=== PATIENT | female | born 1950 | race Caucasian/White ===

== ENCOUNTER 2022-10-11 12:54 | Emergency (ER) | payer MEDICARE, SELFPAY ==
[2022-10-11 13:03] VITALS: BP 138/76; PULSE 103; RESP 17; TEMP 36.5; O2SAT 94
--- NOTE | 2022-10-11 14:00 | XR_ITS ---
WS: [id number] Exam: XR chest 2V* [id number] Date/Time of Exam: 10/11/2022 2:00 PM Reason For Exam: dyspnea for one month, No priors. The lungs are hyperinflated and clear. Normal cardiomediastinal silhouette. Bilateral apical pleural thickening. Bony structures are intact. The thoracic spine is markedly osteopenic. XR/XR chest 2V* [id number] IMPRESSION: 1. Pulmonary hyperinflation that might indicate COPD. No acute process noted.
--- NOTE | 2022-10-11 14:04 | ECG_ITS ---
[facility] Test Date: 2022-10-11 Pat Name: Tammy Johns Department: Room: Gender: Female It Sales Consultant: : 1950 Requested By: Angelo Dobson Order Number: [id number] Clarence MD: Mabel Ulloa M.D. Measurements Intervals [place] Rate: 97 P: 74 RI: 146 QRS: 74 QRSD: 74 T: 70 QT: 334 QTc: 426 Interpretive Statements SINUS RHYTHM POSSIBLE LEFT ATRIAL ENLARGEMENT [-0.1mV P-WAVE IN V1/V2] ANTEROSEPTAL MYOCARDIAL INFARCTION , OF INDETERMINATE AGE No previous ECG available for comparison Electronically Signed On 10-12-2022 9:11:41 CONSTRUCTION PROJECT MANAGER by Mabel Ulloa M.D. [email or web address] [id number] f
--- NOTE | 2022-10-11 14:30 | ED_ITS ---
HPI - SOB/Dyspnea General: Chief Complaint: Shortness of Breath/Dyspnea Stated Complaint: sob Time Seen by Provider: 10/11/22 14:27 History of Present Illness: HPI Narrative: 72-year-old female comes in today for complaints of cough and congestion for 1 month. Patient reports that she does not feel like she can cough up her phlegm. Patient reports she cannot take steroids as they make her swell up. Patient appears nontoxic. Patient does report a history of COPD. Associated symptoms: Deny fever(s) Review of Systems Const: Denies: fever(s) Resp: Reports: dyspnea and non-productive cough Physical Exam Const: COMMON NORMALS: alert HENMT: COMMON NORMALS: normocephalic HEAD & SCALP: normocephalic Resp: COMMON NORMALS: normal respiratory effort AUSCULTATION: wheezes Cardio: COMMON NORMALS: regular rate and regular rhythm RATE: regular rate RHYTHM: regular rhythm GI: COMMON NORMALS: non-tender Extremity: COMMON NORMALS: normal to inspection Neuro: SENSORIUM/ORIENTATION: Yes alert Skin: COMMON NORMALS: turgor normal GENERAL SKIN EXAM: turgor normal Course Vital Signs: Vital signs: Vital Signs Temperature 97.7 F 10/11/22 13:03 Pulse Rate 93 10/11/22 14:40 Respiratory Rate 20 H 10/11/22 14:40 Blood Pressure 155/76 10/11/22 14:40 Pulse Oximetry 92 10/11/22 14:40 Oxygen Delivery Me thod 10/11/22 14:40 MDM - SOB/Dyspnea Medical Decision Making 72-year-old female comes in today for complaints of cough and congestion for about 1 month. Patient does have a history of COPD. Patient feels that she cannot cough up the phlegm. On exam patient has good air movement throughout lungs with occasional wheeze. Vital signs are normal. Differential diagnosis includes pneumonia, exacerbation of COPD, postviral cough. Chest x-ray showed signs of COPD but otherwise no other significant abnormalities. Patient will be started on azithromycin and albuterol. Patient reports understanding of care plan need for follow-up or return to the ER for worsening symptoms. Lab Data Labs/Radiology: Radiology Impressions Chest X-Ray 10/11/22 14:00 IMPRESSION: 1. Pulmonary hyperinflation that might indicate COPD. No acute process noted. Discharge Plan Discharge Patient Disposition: Home Clinical Impression: Acute exacerbation of chronic obstructive airways disease Condition: Stable Prescriptions: New azithromycin 250 mg tablet 250 mg PO DAILY 4 Days Qty: 4 0RF Discharge Orders: Discharge ED (Routine); Ordered 10/11/22 Ordered By: Angelo Singer Discharge Diet: Usual diet Discharge Activity: Increase activity as tolerated Patient Instructions: COPD (Chronic Obstructive Pulmonary Disease) (ED) Activity Restrictions/Additional Instructions: Take antibiotic as directed. You will take azithromycin 250 mg daily for the next 4 days. Use albuterol inhaler every 4 hours as needed for cough, congestion, or shortness of breath. Drink plenty of water. Follow-up with primary care in 1 week for recheck. Return to emergency department for worsening symptoms such as fever greater than 100.4, severe chest pain, increasing shortness of breath, or new concerns. Coding Level of Care Code ED Psychosocial Rehabilitation Counselor for Louise Montero
[2022-10-11 14:39] VITALS: BP 155/76; PULSE 94; RESP 20; O2SAT 92
[2022-10-11 14:40] VITALS: BP 155/76; PULSE 93; RESP 20; O2SAT 92
[2022-10-11 14:50] VITALS: PULSE 898; RESP 18; O2SAT 93
[2022-10-11] MEDS: azithromycin 250 mg Tablet 500 MG PO (15:00)
== END 2022-10-11 15:01 | disposition home or self-care (01) ==
PROVIDERS: Emergency Provider Nurse Practitioner Family
DX: J44.1 Chronic obstructive pulmonary disease with (acute) exacerbation (principal)
CPT/HCPCS: 71046; 93005; 94640; 99285; J3535; Q0144

== ENCOUNTER 2022-11-02 13:15 | Inpatient (IN) | payer MEDICARE, SELFPAY ==
[2022-11-02] VITALS (10 sets, daily range): BP systolic 158–181; BP diastolic 79–97; PULSE 92–110; RESP 16–20; TEMP 36.7–36.9; O2SAT 91–94; BMI 21.7
--- NOTE | 2022-11-02 14:44 | ECG_ITS ---
[facility] Test Date: 2022-11-02 Pat Name: Tammy Johns Department: Room: Gender: Female Pulper: : 1950 Requested By: Becka Garsia Order Number: [id number] Clarence MD: Rose Mary Carvajal M.D. Measurements Intervals [place] Rate: 97 P: 59 SC: 139 QRS: 86 QRSD: 78 T: 75 QT: 346 QTc: 441 Interpretive Statements SINUS RHYTHM POSSIBLE LEFT ATRIAL ENLARGEMENT [-0.1mV P-WAVE IN V1/V2] ANTEROSEPTAL MYOCARDIAL INFARCTION , OF INDETERMINATE AGE [40+ ms Q WAVE IN V1-V4] Compared to ECG 10/11/2022 13:10:47 No significant changes Electronically Signed On 11-02-2022 20:44:11 ROUTE AIDE by Rose Mary Carvajal M.D. [id number]
--- NOTE | 2022-11-02 14:48 | XRR_ITS ---
PROCEDURE INFORMATION: Exam: XR Chest Exam date and time: 11/02/2022 2:55 PM Age: 72 years old Clinical indication: Shortness of breath TECHNIQUE: Imaging protocol: Radiologic exam of the chest. Views: 2 views. COMPARISON: CR XR chest 2V* [id number] 10/11/2022 2:04 PM FINDINGS: Lungs: Lung fierro are hyperinflated consistent with COPD. There are some prominent tubular shaped densities below the right hilum on the PA projection that are more apparent on today's exam and may be secondary to developing airway disease (bronchitis).. There is stable biapical nodularity and apical pleural thickening that is likely chronic. Pleural spaces: No pleural effusions or pneumothorax. Heart/Mediastinum: Unremarkable. No cardiomegaly. Bones/joints: Bones are demineralized consistent with osteoporosis. XR/XR chest 2V* [id number] IMPRESSION: 1. Findings suspicious for active airway disease (bronchitis) right lower lobe. 2. COPD with chronic biapical pleural/parenchymal fibrotic changes, stable.
--- NOTE | 2022-11-02 16:11 | W.ED.SOB ---
HPI - SOB/Dyspnea General: Chief Complaint: Shortness of Breath/Dyspnea Stated Complaint: SOB Time Seen by Provider: 11/02/22 16:07 Source: patient Mode of arrival: ambulatory History of Present Illness: HPI Narrative: 72-year-old female presents emergency room with increasing shortness of breath over the last several days. Normally she does not wear oxygen is currently wearing 4 L on arrival satting at 91%. She had gone to her primary care doctor to be evaluated and oxygen sats were markedly decreased in the low 80s she was directed to the emergency room she has not had any productive cough or fever. MD elicited complaint: shortness of breath and cough Pertinent past history: COPD Onset (ago): day(s) Timing: constant Severity: mild Exacerbating factors: exertion and coughing Relieving factors: oxygen and bronchodilators Known history of: COPD Associated symptoms: Reports cough; Deny abdominal pain, chest congestion, chest pain, diaphoresis, dizziness, extremity pain, fever(s), hemoptysis, lightheadedness, myalgias, nausea, orthopnea, palpitations, paresthesias, polydipsia, polyuria, rash, sense of impending doom, syncope or vomiting Review of Systems Const: Denies: fever(s), chills or diaphoresis ENMT: Denies: throat pain, ear or mastoid pain, nasal discharge or nasal congestion Card: Denies: chest pain, palpitations, lightheadedness, syncope or orthopnea Resp: Reports: dyspnea, non-productive cough and wheezing; Denies: hemoptysis or chest congestion GI: Denies: abdominal pain, nausea or vomiting : Denies: flank pain, difficulty voiding, dysuria, urinary frequency or urinary urgency Musc: Denies: extremity pain Skin/Breast: Denies: rash or pruritus Neuro: Denies: dizziness Endo: Denies: polyuria or polydipsia PFSH ED PFSH: Medical History COPD (chronic obstructive pulmonary disease) COVID-19 Diverticulitis Hypertension Ischemic colitis Lower GI bleed Osteoarthritis Rheumatoid arthritis Type 2 diabetes mellitus Ulcerative colitis Surgical History History of colonoscopy History of partial hysterectomy S/P tonsillectomy Family History Other CAD (coronary artery disease) Denies family history of Diabetes Cancer Social History Smoking and tobacco status: former smoker Alcohol intake: never Substance/Drug Use: never Caregiver/support person: No Lives independently: Yes Household members: none Housing: House Pets and animals: Yes Physical Exam Const: GENERAL APPEARANCE: cooperative and comfortable ORIENTATION/CONSCIOUSNESS: Yes awake, Yes oriented to person, Yes oriented to place and Yes oriented to time Resp: AUSCULTATION: rhonchi and wheezes Cardio: COMMON NORMALS: regular rhythm and No murmurs present (Cardio) RATE: tachycardic RHYTHM: regular rhythm GI: COMMON NORMALS: Soft to palpation and No hepatosplenomegaly present AUSCULTATION: Yes normoactive bowel sounds PALPATION: Yes Soft to palpation, No Tenderness to palpation present (GI), No Guarding due to palpation present (GI) and Yes No hepatosplenomegaly present Extremity: COMMON NORMALS: normal to inspection, capillary refill normal, no clubbing, cyanosis or edema, no calf tenderness and no pedal edema Neuro: SENSORIUM/ORIENTATION: Yes oriented to person, Yes oriented to place and Yes oriented to time Skin: COMMON NORMALS: no rashes or lesions noted GENERAL SKIN EXAM: no rashes or lesions noted Course Vital Signs: Vital signs: Vital Signs Temperature 97.5 F L 11/05/22 11:43 Pulse Rate 84 11/05/22 11:43 Respiratory Rate 18 11/05/22 11:43 Blood Pressure 157/75 11/05/22 11:43 Pulse Oximetry 91 11/05/22 11:43 Oxygen Delivery Me thod 11/05/22 11:43 Oxygen Flow Rate 4 11/05/22 08:00 MDM - SOB/Dyspnea Medical Decision Making This patient has COPD with increased oxygen need. Will admit aggressive pulmonary toilet along with steroids. Flu and COVID swabs negative discussed with hospitalist orders written labs imaging and EKG reviewed as found in the chart EKG shows no acute changes Medical Records I reviewed the patient's medical records. Lab Data I reviewed the patient's lab results. 11/02/22 15:38 11/02/22 15:38 Labs/Radiology: Radiology Impressions Chest X-Ray 11/02/22 14:48 IMPRESSION: 1. Findings suspicious for active airway disease (bronchitis) right lower lobe. 2. COPD with chronic biapical pleural/parenchymal fibrotic changes, stable. Chest CT 11/02/22 18:56 IMPRESSION: 1. Scattered areas of ground-glass opacification and areas of reticulonodular interstitial thickening in both lungs. Findings are suspicious for pneumonia, including atypical organisms. Recommend followup chest imaging to insure resolution of these findings. 2. Cylindrical bronchiectasis in the right and left upper lobes. 3. Noncalcified nodule in the right upper lobe with an average measurement of 9 mm (series 4, image 14). For both low risk and high risk patients, consider CT Chest at 3 months, PET/CT, or biopsy. (Reference: Marissa) 4. Incidental/nonacute findings are listed in the report. COMMENTS: In the absence of a history or active diagnosis of lung cancer, it is recommended that this patient with emphysema be evaluated for enrollment in a low dose CT lung cancer screening program. REFERENCES: Marissa Razo, et al. Guidelines for Management of Incidental Pulmonary Nodules Detected on CT Images: From the Fleischner Society 2017. Radiology. 2017;284(1):228-243. Laboratory Results WBC 9.0 10^3/uL (4.0-10.0) 11/02/22 15:38 RBC 4.86 10^6/uL (4.1-5.3) 11/02/22 15:38 Hgb 14.1 g/dL (11.5-15.3) 11/02/22 15:38 Hct 44.3 % (37.0-47.0) 11/02/22 15:38 MCV 91.2 fl (81-99) 11/02/22 15:38 MCH 29.0 pg (28.0-34.0) 11/02/22 15:38 MCHC 31.8 g/dL (30.0-36.0) 11/02/22 15:38 RDW 13.4 % (12.1-15.1) 11/02/22 15:38 Plt Count 355 10^3/cmm (130-400) 11/02/22 15:38 MPV 10.1 fL (7.4-10.4) 11/02/22 15:38 Neut % (Auto) 68.4 % 11/02/22 15:38 Lymph % (Auto) 19.8 % 11/02/22 15:38 [place] % (Auto) 8.1 % 11/02/22 15:38 Eos % (Auto) 2.6 % 11/02/22 15:38 Baso % (Auto) 0.8 % 11/02/22 15:38 Neut # (Auto) 6.14 10^3/uL (1.8-7.7) 11/02/22 15:38 Lymph # (Auto) 1.8 10^3/uL (0.8-4.8) 11/02/22 15:38 [place] # (Auto) 0.7 10^3/uL (0.2-0.9) 11/02/22 15:38 Eos # (Auto) 0.2 10^3/uL (0.0-0.8) 11/02/22 15:38 Baso # (Auto) 0.1 10^3/uL (0.0-0.1) 11/02/22 15:38 Nucleated RBC % (auto) 0 % 11/02/22 15:38 Nucleated RBCs # 0.0 /100WBC 11/02/22 15:38 D-Dimer 0.44 ug/mIFEU (0-0.59) 11/02/22 17:45 Specimen Type Arterial 11/02/22 17:29 Sample Site Radial, left 11/02/22 17:29 ABG pH 7.45 (7.35-7.45) 11/02/22 17:29 ABG pCO2 40.5 mmHg (35-45) 11/02/22 17:29 ABG pO2 62.5 mmHg (80.0-100.0) L 11/02/22 17:29 ABG HCO3 28.0 mmol/L (22-26) H 11/02/22 17:29 ABG O2 Saturation 93.4 11/02/22 17:29 ABG Base Excess 3.7 mmol/L (-2.0-2.0) H 11/02/22 17:29 Jax Test Pos 11/02/22 17:29 A-a O2 Gradient 11.4 mmHg (5-10) H 11/02/22 17:29 Hematocrit 41.6 % (37-47) 11/02/22 17:29 Hgb O2 Saturation 91.4 % (95-100) L 11/02/22 17:29 Carboxyhemoglobin 1.3 %THgb (0.4-20.1) 11/02/22 17:29 Methemoglobin 0.8 % (0.4-1.5) 11/02/22 17:29 Total Hemoglobin 13.6 g/dL (12-16) 11/02/22 17:29 Sodium 142.0 mmol/L (131-143) 11/02/22 17:29 Potassium 3.7 mmol/L (3.5-5.0) 11/02/22 17:29 Glucose 108.0 mg/dL (70-115) 11/02/22 17:29 Ionized Calcium 1.2 mmol/L (1.1-1.4) 11/02/22 17:29 O2 Delivery Device Nc 11/02/22 17:29 O2 Liters/Min 2.0 % 11/02/22 17:29 FiO2 28.0 % 11/02/22 17:29 Paper Cutting Machine Operator ID Cak 11/02/22 17:29 Sodium 141 mmol/L (136-145) 11/02/22 15:38 Potassium 3.8 mmol/L (3.5-5.1) 11/02/22 15:38 Chloride 102 mmol/L (98-107) 11/02/22 15:38 Carbon Dioxide 27 mmol/L (22-29) 11/02/22 15:38 Anion Gap 15.8 (5-19) 11/02/22 15:38 BUN 17 mg/dL (8-23) 11/02/22 15:38 Creatinine 0.5 mg/dL (0.5-0.9) 11/02/22 15:38 GFR Calculation Not Reportable 11/02/22 15:38 Glucose 107 mg/dL (65-115) 11/02/22 15:38 Calculated Osmolality 294 mOsm/kg (285-295) 11/02/22 15:38 Calcium 9.2 mg/dL (8.5-10.5) 11/02/22 15:38 Total Bilirubin 0.3 mg/dL (0.15-1.2) 11/02/22 15:38 AST 15 U/L (0-32) 11/02/22 15:38 ALT 11 U/L (0-33) 11/02/22 15:38 Alkaline Phosphatase 130 U/L (35-105) H 11/02/22 15:38 NT-Pro-B Natriuret Pep 224 pg/mL (0-125) H 11/02/22 15:38 Total Protein 7.6 g/dL (6.6-8.7) 11/02/22 15:38 Albumin 4.0 g/dL (3.5-5.2) 11/02/22 15:38 Globulin 3.6 g/dL (1.3-4.6) 11/02/22 15:38 Urine Color Yellow (Yellow) 11/02/22 16:07 Urine Appearance Clear (CLEAR) 11/02/22 16:07 Urine pH 5 (5-7) 11/02/22 16:07 Ur Specific [place] 1.030 (1.005-1.030) 11/02/22 16:07 Urine Protein Neg (Negative) 11/02/22 16:07 Urine Glucose (UA) Norm (Normal) 11/02/22 16:07 Urine Ketones 1+ (Negative) H 11/02/22 16:07 Urine Blood Neg (Negative) 11/02/22 16:07 Urine Nitrate Negative (Negative) 11/02/22 16:07 Urine Bilirubin Neg (Negative) 11/02/22 16:07 Urine Urobilinogen Neg mg/dL (Negative) 11/02/22 16:07 Ur Leukocyte Esterase 1+ (Negative) H 11/02/22 16:07 Urine RBC None /hpf (0-2) 11/02/22 16:07 Urine WBC None /hpf (0-5) 11/02/22 16:07 Ur Squamous Epith Cells 25-40 /hpf (0-5) H 11/02/22 16:07 Amorphous Sediment Not Reportable 11/02/22 16:07 Urine Bacteria None /hpf (NONE) 11/02/22 16:07 Urine Mucus 2+ /hpf 11/02/22 16:07 Influenza Type A Ag negative (Negative) 11/02/22 17:55 Influenza Type B Ag negative (Negative) 11/02/22 17:55 Discharge Plan Discharge Patient Disposition: Admitted As Inpatient Admit Provider: Ed Powell Clinical Impression: Acute exacerbation of chronic obstructive airways disease Condition: Stable Discharge Diet: Advance as tolerated Discharge Activity: Resume usual activity Coding Level of Care Code ED Transformer Assembly Supervisor for Louise Montero
[2022-11-02 16:17] LABS: Basophils # 0.1 10^3/uL (0.0-0.1); Basophils % 0.8 %; Eosinophils # 0.2 10^3/uL (0.0-0.8); Eosinophils % 2.6 %; Hematocrit 44.3 % (37.0-47.0); Hemoglobin 14.1 g/dL (11.5-15.3); Lymphocytes # 1.8 10^3/uL (0.8-4.8); Lymphocytes % 19.8 %; Mean Corpuscular HGB Conc 31.8 g/dL (30.0-36.0); Mean Corpuscular Volume 91.2 fl (81-99); Mean Platelet Volume 10.1 fL (7.4-10.4); Monocytes # 0.7 10^3/uL (0.2-0.9); Monocytes % 8.1 %; Neutrophils # 6.14 10^3/uL (1.8-7.7); Neutrophils % 68.4 %; Nucleated Red Blood Cells % 0 %; Platelet Count 355 10^3/cmm (130-400); Red Blood Count 4.86 10^6/uL (4.1-5.3); Red Cell Distribution Width 13.4 % (12.1-15.1)
[2022-11-02 16:35] LABS: Alanine Aminotransferase 11 U/L (0-33); Alkaline Phosphatase 130 U/L (35-105); Anion Gap 15.8 (5-19); Aspartate Amino Transferase 15 U/L (0-32); Blood Urea Nitrogen 17 mg/dL (8-23); Calcium 9.2 mg/dL (8.5-10.5); Carbon Dioxide 27 mmol/L (22-29); Chloride 102 mmol/L (98-107); Globulin 3.6 g/dL (1.3-4.6); Glucose 107 mg/dL (65-115); Osmolality Calculated 294 mOsm/kg (285-295); Potassium 3.8 mmol/L (3.5-5.1); Sodium 141 mmol/L (136-145); Total Bilirubin 0.3 mg/dL (0.15-1.2); Total Protein 7.6 g/dL (6.6-8.7)
--- NOTE | 2022-11-02 17:01 | ECG_ITS ---
[facility] Test Date: 2022-11-02 Pat Name: Tammy Johns Department: Room: Gender: Female Legislators: : 1950 Requested By: Becka Garsia Order Number: [id number] Clarence MD: Rose Mary Carvajal M.D. Measurements Intervals [place] Rate: 91 P: 72 [place]: 154 QRS: 75 QRSD: 71 T: 66 QT: 342 QTc: 422 Interpretive Statements SINUS RHYTHM SEPTAL MYOCARDIAL INFARCTION , OF INDETERMINATE AGE [40+ ms Q WAVE IN V1/V2] Compared to ECG 11/02/2022 15:51:45 No significant changes Electronically Signed On 11-02-2022 20:50:43 SUPERVISOR RIVETING by Rose Mary Carvajal M.D. [id number]
[2022-11-02 17:11] LABS: NT Pro B Type Natriuretic Pept 224 pg/mL (0-125)
[2022-11-02] MEDS: ipratropium-albuterol 3 mL Neb INHALATION ×2 (17:26→20:33)
[2022-11-02 17:40] LABS: ABG PCO2 40.5 mmHg (35-45); ABG PH Result 7.45 (7.35-7.45); Alveolar-Arterial Oxygen Gradi 11.4 mmHg (5-10); Arterial Blood Gas Hematocrit 41.6 % (37-47); Base Excess ABG 3.7 mmol/L (-2.0-2.0); Blood Gas Allen Test Pos; Blood Gas Operator Identificat CAK; Blood Gas Sample Site Radial, left; Blood Gas Sample Type Arterial; Carboxyhemoglobin 1.3 %THgb (0.4-20.1); HGB O2 Sat 91.4 % (95-100); Ionized Calcium Level - ABG 1.2 mmol/L (1.1-1.4); Methemoglobin 0.8 % (0.4-1.5); Oxygen Device NC; Oxygen Saturation ABG 93.4; PO2 ABG 62.5 mmHg (80.0-100.0); Potassium Level - ABG 3.7 mmol/L (3.5-5.0); Total Hemoglobin 13.6 g/dL (12-16)
--- NOTE | 2022-11-02 17:54 | USCV_ITS ---
Tammy Johns Age: 72 Gender: F : 1950 Exam Date: 11/02/2022 19:15 Ordering Phys: Ed Powell MD Technologist: MIHAELA Exam Location: [facility] Indication: CHF? , long-term smoker BP: 181 / 96 HR: 102 Rhythm: Sinus Technical Quality: Adequate MEASUREMENTS (Male / Female) Normal Values 2D ECHO LV Diastolic Diameter PLAX 3.2 cm 4.2 - 5.9 / 3.9 - 5.3 cm LV Systolic Diameter PLAX 2.0 cm IVS Diastolic Thickness 1.5 cm 0.6 - 1.0 / 0.6 - 0.9 cm IVS Systolic Thickness 1.6 cm LVPW Diastolic Thickness 1.1 cm 0.6 - 1.0 / 0.6 - 0.9 cm LVPW Systolic Thickness 1.6 cm LVOT Diameter 1.9 cm LV Ejection Fraction 2D Teich 70.9 % LV Ejection Fraction MOD 2C 74.3 % LV Ejection Fraction 2C AL 78.6 % LA Diameter 2.5 cm LA Width 2.3 cm LA Height 4.3 cm RA Width 2.5 cm RA Height 3.7 cm Aorta at Sinotubular Diameter 2.7 cm IVC Diameter 1.1 cm M-MODE Aortic Annulus Diameter 3.0 cm LA Ao Ratio MM 0.9 MV E Point Septal Separation 0.3 cm DOPPLER AV Peak Velocity 108.0 cm/s LVOT Peak Velocity 127.0 cm/s AV Area Cont Eq vti 2.6 cm squared AV Area Cont Eq pk 3.4 cm squared MV Area PHT 3.4 cm squared Mitral E to A Ratio 0.6 MV E' Velocity 38.5 cm/s Mitral E to MV E' Ratio 13.7 Mitral E to LV E' Lateral Ratio 14.2 Mitral E to LV E' Septal Ratio 13.2 TR Peak Velocity 250.7 cm/s TR Peak Gradient 25.1 mmHg TV Peak E Velocity 46.0 cm/s Right Atrial Pressure 5.0 mmHg Pulmonary Artery Systolic Pressu 30.1 mmHg PV Peak Velocity 126.0 cm/s FINDINGS Left Ventricle Normal left ventricular size, systolic function and wall thickness, with no regional wall motion abnormalities. Left ventricular ejection fraction is estimated at 70 %. Grade I diastolic dysfunction (abnormal relaxation filling pattern), normal to mildly elevated filling pressures. Right Ventricle Normal right ventricular size and systolic function. Right ventricular systolic pressure 27 mmHg. Right Atrium Normal right atrial size. Left Atrium Normal left atrial size. Mitral Valve Structurally normal mitral valve. No mitral valve stenosis. No mitral valve regurgitation. Aortic Valve Structurally normal trileaflet aortic valve. No aortic valve stenosis. No aortic valve regurgitation. Tricuspid Valve Structurally normal tricuspid valve. No tricuspid valve stenosis. Trace tricuspid valve regurgitation. Pulmonic Valve Structurally normal pulmonic valve. No pulmonary valve stenosis. No significant pulmonary valve regurgitation. Pericardium No pericardial effusion. Aorta Normal size aortic root and proximal ascending aorta. IVC Normal IVC dimension with >50% respiratory change of the inferior vena cava. CONCLUSIONS 1. Normal left ventricular size, systolic function and wall thickness, with no regional wall motion abnormalities. Left ventricular ejection fraction is estimated at 70 %. Grade I diastolic dysfunction (abnormal relaxation filling pattern), normal to mildly elevated filling pressures. 2. No signifcant valvular abnormality. 3. Pulmonary artery pressure estimated at 27 mm Hg. 4. No prior similar studies to compare. Mabel Ulloa MD (Electronically Signed) Final Date: 03 November 2022 13:53 S
--- NOTE | 2022-11-02 17:55 | P.HP_ITS ---
Providers/Chief Complaint Primary Care Provider: BASIA Chandra Chief Complaint: SOB History of Present Illness Tammy Johns is a 72 year old female with no significant past medical history advanced COPD on inhalers, remote history of ischemic colitis from ulcerative colitis not on treatment not on home oxygen presented to the ER because of worsening of breath for last 2 to 4 weeks associated with walking and cough. At present she is not even able to complete sentences hence presented to the ER. In the ER she was found to be hypoxic down to 70s requiring 4 L of oxygen supplementation after which her saturation improved to 90 the patient continues to remain tachypneic hence hospitalist admission. She received nebulization and 125 mg of IV Solu-Medrol. When I saw the patient he does not need oxygen supplementation saturating 90% with blood pressure of 190 systolics. Patient was visibly tachypneic and out of breath even on talking. Patient was not sure about admission and wanted to go back home on oxygen as she had animals to take care of. We discussed in detail that she is at a high risk of worsening history of baseline anemia that has of hypoxia and history of etiology of the same. She verbalized understanding and wants to talk to her neighbors before deciding about admissions. Patient is deciding she is to receive nebulization with DuoNeb and Pulmicort, IV Lasix one-time, continued oxygen supplementation to maintain saturation over 90, IV ceftriaxone and oral azithromycin. If she decides to stay further work-up as below will be done. Review of Systems General: Reports: 10 or more systems reviewed and unremarkable except in HPI and below Const: Denies: fever(s), chills, body aches, change in appetite, change in weight, malaise, night sweats, diaphoresis, change in sleep pattern, daytime sleepiness or snoring Eyes: Denies: change in vision, blurry vision, photophobia, eye discomfort or eye discharge ENMT: Denies: throat pain, enlarged tonsils, hoarseness, mouth pain, oral sores, dry mouth, tinnitus, nasal congestion or post nasal drip Card: Denies: chest pain, palpitations, irregular heart rhythm, edema, swelling of feet/ankles, lightheadedness, syncope, pre-syncope, dyspnea on exertion, orthopnea, leg pain with exertion or acrocyanosis Resp: Denies: dyspnea, productive cough, non-productive cough, wheezing, stridor, pain on inspiration, change in phlegm color, hemoptysis or chest congestion GI: Denies: abdominal pain, nausea, vomiting, hematemesis, coffee ground emesis, dysphagia, heartburn, diarrhea, constipation, bloating, GI cramping, change in bowel habits, pain on defecation, hematochezia or melena : Denies: flank pain, dysuria, urinary frequency, urinary urgency, urinary hesitancy, nocturia or hematuria Musc: Denies: neck pain, back pain, extremity pain, joint pain, joint swelling, joint redness, joint stiffness or limited range of motion Neuro: Denies: headache(s), numbness in extremities, weakness in extremities, sensory changes, lack of coordination, difficulty walking, frequent falls, dizziness, vertigo, confusion, Slurred speech present, difficulty communicating thoughts or seizure-like activity Psych: Denies: anxiety, depression, mood swings, panic attacks, hopelessness or irritability Endo: Denies: polyuria, polydipsia, tired all the time, cold intolerance, excessive sweating, flushing or heat intolerance Tim/Lymph: Denies: easy bruising or easy bleeding All/Imm: Denies: tongue swelling, facial swelling or acute wheezing Medications/Allergies Home Medications Medication Instructions Recorded Confirmed Last Taken Type albuterol sulfate 90 mcg/actuation 2 puff inhalation Q4H PRN Cough 11/02/22 11/02/22 Unknown History aerosol inhaler Allergies Allergy/AdvReac Type Severity Reaction Status Date / Time aspirin Allergy ALGY-Rash Verified 11/02/22 16:23 Penicillins Allergy ALGY-Anaphy Verified 11/02/22 16:23 laxis umeclidinium Allergy ADR-Cough Verified 11/02/22 16:23 [From Anoro Ellipta] vilanterol Allergy ADR-Cough Verified 11/02/22 16:23 [From Anoro Ellipta] STEROIDS Allergy Unknown Uncoded 11/02/22 16:22 PFSH Acute PFSH: Medical History (Updated 11/03/22 @ 15:32 by Ed Powell MD) COPD (chronic obstructive pulmonary disease) COVID-19 Diverticulitis Ischemic colitis Lower GI bleed Ulcerative colitis Surgical History (Updated 11/03/22 @ 15:32 by Ed Powell MD) History of colonoscopy History of partial hysterectomy S/P tonsillectomy Family History (Updated 11/03/22 @ 15:32 by Ed Powell MD) Other CAD (coronary artery disease) Denies family history of Diabetes Cancer Social History (Updated 11/03/22 @ 15:32 by Ed Powell MD) Smoking and tobacco status: former smoker Alcohol intake: never Substance/Drug Use: never Caregiver/support person: No Lives independently: Yes Household members: none Housing: House Pets and animals: Yes Vitals/I&O/Wt Last Vital Signs Temp 98.1 F 11/02/22 13:21 Pulse 95 11/02/22 17:29 Resp 16 11/02/22 17:26 BP 181/96 11/02/22 17:22 Pulse Ox 92 11/02/22 17:26 O2 Del Method 11/02/22 17:26 O2 Flow Rate 4 11/02/22 17:26 Weight last 48 hrs Weight 61.235 kg Physical Exam Narrative: General: In acute distress and no shortness of breath, using accessory muscles during examination on 4 L oxygen supplementation, pursed lips HEENT: PERRLA, pupils bilaterally equal and reactive Chest:Bronchial breath sounds b/l ,decreased air entry, equal good air entry bilaterally, no more fine basal crackles CVS: S1-S2 regular, no murmurs, no tachycardia, no gallops, no rubs Abdomen: Soft, nontender, no organomegaly, bowel sounds present, morbidly obese Neuro: No focal deficits, no facial deformity, AO x3, power 5/5 in all limbs Data 11/02/22 15:38 11/02/22 15:38 A&P Assessment and plan (1) Respiratory failure with hypoxia: (2) Acute exacerbation of chronic obstructive airways disease: (3) Pneumonia: Plan If patient decides to stay in the hospital we will do as follows. Hypoxic respiratory failure secondary to COPD exacerbation with possible pneumo shon. Check flu swab, COVID-19 PCR, sputum culture, urine Legionella, bacterial antigen, D-dimer. If D-dimer is positive will check CTA otherwise we will do CT without contrast. DuoNebs every 6 hour, budesonide twice daily. Oxygen supplementation keeping saturation over 88%. Solu-Medrol 60 mg every 6 hourly. Empirically start on IV ceftriaxone and oral azithromycin for now. Check echocardiogram. IV Lasix 40 mg one-time. Cannot rule out underlying pulmonary hypertension. Hypertension: Not a known diagnosis. Goal blood pressure less than 140/90 mmHg. Will continue to monitor. If needed will start on medication. Full code. Regular diet. Heparin 5000 every 8 hourly for DVT prophylaxis Famotidine for PUD prophylaxis. Attestations Medical Necessity Statement*: Requires admission for more than 2 midnights for management of hypoxia secondary COPD exacerbation requiring supplemental oxygen Time Spent in Patient Care: Greater than 35 minutes Coding Level of Care Code Acute Code for [facility] Diagnoses Respiratory failure with hypoxia J96.91 Acute exacerbation of chronic obstructive airways disease J44.1 Pneumonia J18.9
[2022-11-02 18:28] LABS: Influenza A by IFA negative (Negative); Influenza B by IFA negative (Negative)
[2022-11-02 18:38] LABS: D Dimer 0.44 ug/mIFEU (0-0.59)
[2022-11-02] MEDS: cefTRIAXone 1,000 MG in sodium chloride 0.9% (plus) 50 ML 100 MG IV (18:44)
[2022-11-02] MEDS: famotidine 20 mg/2 mL INJ IVP (18:45)
[2022-11-02] MEDS: FUROsemide 10 mg/mL SDV 4mL 40 MG IVP (18:47)
--- NOTE | 2022-11-02 18:56 | CTR_ITS ---
PROCEDURE INFORMATION: Exam: CT Chest Without Contrast; Diagnostic Exam date and time: 11/02/2022 8:52 PM Age: 72 years old Clinical indication: Shortness of breath; Patient HX: SOB with hypoxia. History of copd. ; Additional info: SOB, copd vs pna TECHNIQUE: Imaging protocol: Diagnostic computed tomography of the chest without contrast. Sagittal and coronal reformatted images were created and reviewed. Interpretation is based on receipt of 219 images. Radiation optimization: All CT scans at this facility use at least one of these dose optimization techniques: automated exposure control; mA and/or kV adjustment per patient size (includes targeted exams where dose is matched to clinical indication); or iterative reconstruction. COMPARISON: CR XR chest 2V* [id number] 11/02/2022 2:55 PM RADIATION DOSE METRICS: Total DLP (mGy-cm): 241.94 FINDINGS: Limitations: Evaluation of the mediastinum and vasculature is limited without intravenous contrast. Trachea: Tracheobronchial structures are patent. Lungs: Stable moderate hyperinflation of the lungs. Cylindrical bronchiectasis in the right and left upper lobes. Moderate centrilobular emphysematous changes with moderate hyperinflation in the lungs. Scattered areas of ground-glass opacification and areas of reticulonodular interstitial thickening in both lungs. Findings are suspicious for pneumonia, including atypical organisms. Calcified granulomas in the left lower lobe. Noncalcified nodule in the right upper lobe with an average measurement of 9 mm (series 4, image 14). Pleural spaces: Bilateral apical pleural thickening. No pleural effusion. No pneumothorax. Heart: The heart is normal in size. Coronary arteries: Moderate atherosclerotic calcification in the coronary arteries. Esophagus: The esophagus is unremarkable. Mediastinal space: No mediastinal hematoma. No pneumomediastinum. Lymph nodes: No lymphadenopathy. Vasculature: Mild atherosclerotic changes in the visualized arteries. No evidence for aortic aneurysm. Pulmonary arteries are unremarkable. Pulmonary veins are unremarkable. Liver: The visualized liver is unremarkable. Gallbladder and bile ducts: No dilatation of the visualized bile ducts. Pancreas: The visualized pancreas is unremarkable. No pancreatic ductal dilatation. Spleen: The visualized spleen is unremarkable. Adrenal glands: The right and left adrenal glands are unremarkable. Kidneys and ureters: The visualized right and left kidneys are unremarkable. Bones/joints: Degenerative changes in the spine and shoulders. Soft tissues: No acute abnormality in the extrathoracic soft tissues. CT/CT chest wo con [id number] IMPRESSION: 1. Scattered areas of ground-glass opacification and areas of reticulonodular interstitial thickening in both lungs. Findings are suspicious for pneumonia, including atypical organisms. Recommend followup chest imaging to insure resolution of these findings. 2. Cylindrical bronchiectasis in the right and left upper lobes. 3. Noncalcified nodule in the right upper lobe with an average measurement of 9 mm (series 4, image 14). For both low risk and high risk patients, consider CT Chest at 3 months, PET/CT, or biopsy. (Reference: Marissa) 4. Incidental/nonacute findings are listed in the report. COMMENTS: In the absence of a history or active diagnosis of lung cancer, it is recommended that this patient with emphysema be evaluated for enrollment in a low dose CT lung cancer screening program. REFERENCES: Marissa Razo et al. Guidelines for Management of Incidental Pulmonary Nodules Detected on CT Images: From the Fleischner Society 2017. Radiology. 2017;284(1):228-243.
[2022-11-02 18:58] LABS: Folate Level 9.1 ng/mL (4.8-37.3)
[2022-11-02 18:59] LABS: Procalcitonin 0.02 ng/mL (0-0.5); Thyroid Stimulating Hormone 0.72 uIU/mL (0.27-4.20); Vitamin B12 367 pg/mL (232-1245)
[2022-11-02 19:10] LABS: Iron 71 ug/dL (37-145); Percent Saturation 25.5 % (20-50); Total Iron Binding Capacity 278 mcg/dl; Unsaturated Iron Binding 207 ug/dL (112-347)
[2022-11-02 19:56] LABS: Adenovirus Not Detected (NOT DETECT); Chlamydia Pneumoniae Not Detected (NOT DETECT); Coronavirus 229E,HKU1,NL63,OC4 Not Detected (NOT DETECT); Human Metapneumovirus Not Detected (NOT DETECT); Human Rhinovirus/Enterovirus Not Detected (NOT DETECT); Influenza A Not Detected (NOT DETECT); Influenza A H1 Not Detected (NOT DETECT); Influenza A H1-2009 Not Detected (NOT DETECT); Influenza A H3 Not Detected (NOT DETECT); Influenza B Not Detected (NOT DETECT); Mycoplasma Pneumoniae Not Detected (NOT DETECT); Parainfluenza Virus Type 1 Not Detected (NOT DETECT); Parainfluenza Virus Type 2 Not Detected (NOT DETECT); Parainfluenza Virus Type 3 Not Detected (NOT DETECT); Parainfluenza Virus Type 4 Not Detected (NOT DETECT); Respiratory Syncytial Virus A Not Detected (NOT DETECT); Respiratory Syncytial Virus B Not Detected (NOT DETECT); SARS-COV-2 Not Detected (NOT DETECT)
--- NOTE | 2022-11-02 20:26 | PC.NURSE ---
Patient arrived on floor from ER at 20:04 via bed. Patient's vitals currently stable, on 4L oxygen saturating 92 and reports no home use of oxygen. Has requested food, stating she hasn't eaten all day. Currently resting in bed with two side rails up, call light and bedside table within reach, and no further needs at this time.
[2022-11-02] MEDS: budesonide 0.5 mg/2 mL Neb INHALATION (20:32)
--- NOTE | 2022-11-02 20:44 | ECG_ITS ---
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 Measurements Intervals Canones Rate: 97 P: 79 WV: 151 QRS: 38 QRSD: 72 T: 74 QT: 366 QTc: 465 Interpretive Statements SINUS RHYTHM ANTEROSEPTAL MYOCARDIAL INFARCTION , OF INDETERMINATE AGE [40+ ms Q WAVE IN V1-V4] Compared to ECG 11/02/2022 17:01:14 No significant changes Electronically Signed On 11-02-2022 20:51:54 SPORTS TRAINER by Rose Mary Carvajal M.D. [id number]
--- NOTE | 2022-11-02 20:44 | PC.NURSE ---
Patient was taken down to CT via wheelchair and on 4L oxygen by FUR PLUCKER
[2022-11-02] MEDS: docusate sodium 100 mg Capsule PO (21:38)
[2022-11-02] MEDS: heparin 5,000 unit/mL INJ 1 mL 5000 UNIT SUBCUT (21:39)
--- NOTE | 2022-11-02 23:52 | PC.NURSE ---
Patient has allergy to steroids and states that she had angioedema. Dr Gray contacted regarding whether to give or hold solu-mederol. Dr Gray instructed to hold med for now.
[2022-11-03] VITALS (15 sets, daily range): BP systolic 129–149; BP diastolic 65–84; PULSE 71–113; RESP 16–24; TEMP 36.3–36.7; O2SAT 89–96; BMI 23.0
[2022-11-03] MEDS: ipratropium-albuterol 3 mL Neb INHALATION ×4 (03:12→20:31)
[2022-11-03] MEDS: acetaminophen 500 mg Tablet PO (04:46)
--- NOTE | 2022-11-03 04:58 | PC.NURSE ---
0600 dose of Solu-medrol held per Dr Gray's previous orders due to possible allergy
[2022-11-03] MEDS: famotidine 20 mg/2 mL INJ IVP (05:04)
[2022-11-03] MEDS: heparin 5,000 unit/mL INJ 1 mL 5000 UNIT SUBCUT ×3 (05:04→21:15)
[2022-11-03 05:59] LABS: Basophils % 0.2 %; Hematocrit 41.9 % (37.0-47.0); Hemoglobin 13.3 g/dL (11.5-15.3); Lymphocytes # 0.6 10^3/uL (0.8-4.8); Lymphocytes % 12.8 %; Mean Corpuscular HGB Conc 31.7 g/dL (30.0-36.0); Mean Corpuscular Hemoglobin 28.2 pg (28.0-34.0); Mean Corpuscular Volume 88.8 fl (81-99); Mean Platelet Volume 10.2 fL (7.4-10.4); Monocytes # 0.1 10^3/uL (0.2-0.9); Monocytes % 1.4 %; Neutrophils # 4.25 10^3/uL (1.8-7.7); Nucleated Red Blood Cells % 0 %; Platelet Count 358 10^3/cmm (130-400); Red Blood Count 4.72 10^6/uL (4.1-5.3); Red Cell Distribution Width 13.2 % (12.1-15.1)
[2022-11-03 06:16] LABS: Estmated Average Glucose 154
[2022-11-03 06:33] LABS: Alanine Aminotransferase 8 U/L (0-33); Alkaline Phosphatase 126 U/L (35-105); Anion Gap 18.7 (5-19); Aspartate Amino Transferase 16 U/L (0-32); Blood Urea Nitrogen 20 mg/dL (8-23); Calcium 9.6 mg/dL (8.5-10.5); Carbon Dioxide 25 mmol/L (22-29); Chloride 99 mmol/L (98-107); Chol HDL Ratio 3.46 mg/dL (0.0-4.40); Cholesterol 232 mg/dL (0-200); Globulin 3.5 g/dL (1.3-4.6); Glucose 213 mg/dL (65-115); HDL Cholesterol 67 mg/dL (60-100); LDL Cholesterol Calculated 144 mg/dL (50-129); Magnesium 2.2 mg/dL (1.7-2.3); Osmolality Calculated 297 mOsm/kg (285-295); Phosphorus 3.2 mg/dL (2.5-4.5); Potassium 3.7 mmol/L (3.5-5.1); Sodium 139 mmol/L (136-145); Total Bilirubin 0.2 mg/dL (0.15-1.2); Total Protein 7.5 g/dL (6.6-8.7); Triglycerides 103 mg/dL (0-150); VLDL Cholestrol Calculation 21 mg/dL (0-30)
[2022-11-03] MEDS: budesonide 0.5 mg/2 mL Neb INHALATION ×2 (07:39→20:31)
[2022-11-03] MEDS: docusate sodium 100 mg Capsule PO ×2 (10:10→17:33)
[2022-11-03] MEDS: azithromycin 250 mg Tablet 500 MG PO (10:10)
--- NOTE | 2022-11-03 12:28 | PC.CHAP ---
Pastoral Care Encounter/Spiritual Assessment Type of Contact [] Declined home security alarm installer visit [] Patient/Family/Request visit [] Outpatient visit [] Follow-up visit [] Physician referral [] Code/Alert [x] Routine visit [] Staff referral [] Actively dying [] Patient sleeping [] Family support [] [] Out of room [] Palliative care [] [] Receiving care in room [] Pre-surgical visit [] Trauma [] Long length of stay [] ICU visit [] Other: Relational/Emotional Strength [] Patient feels connected with others/family/visitors/staff [] Distress [] Loneliness/isolation [] Abandonment Spirituality of Patient [] Person of Danita [] Attends Orthodoxy of their Danita [] Believes in Prayer [] Reads Bible or Congregational materials [] There are Spiritual issues to be addressed [employer] Professional [employer] Interventions [x] Prayer [] Active listening [] Non-anxious presence [] Spiritual/emotional support [] Crisis/trauma care [] Spiritual counseling [] Bereavement support [] Provided bereavement packet [] Provided Bible/devotional materials [] Provided toy/stuffed animal, coloring book to patient or family member [] Provided Communion [] Anointing/[place] [] Salvation [x] Completed spiritual assessment [] Other: Impact on Illness or Injury [] Angry [] Fearful [] Anxious [] Often cries [] Exhaustion [] Unable to work [] Unable to attend christianity [] Unable to walk/stand [] Unable to read [] Unable to drive [] Unable to eat/drink [] Unable to sleep [] Unable to be with family [] Patient intubated [] Other: Summary Time spent with patient 10 min
--- NOTE | 2022-11-03 15:34 | PM.PN ---
Subjective Subjective: Patient decided to stay in the hospital. Today morning states she is feeling a lot better. On 4 L satting 93%. Patient looks a lot more comfortable. Able to have complete conversation and complete sentences without being more short of breath. Not using accessory muscles anymore. Vitals/I&O/Wt Last Vital Signs Temp 97.4 F L 11/03/22 04:00 Pulse 97 11/03/22 13:48 Resp 16 11/03/22 13:44 BP 144/71 11/03/22 12:00 Pulse Ox 93 11/03/22 13:44 O2 Del Method 11/03/22 13:44 O2 Flow Rate 4 11/03/22 13:44 11/03/22 11/03/22 11/03/22 06:59 14:59 22:59 Intake Total 400 / 400 Output Total 700 / 700 Balance -700 / 310 400 / 400 Weight last 48 hrs Weight 64.665 kg Weight 61.235 kg Weight 61.235 kg Physical Exam Narrative: General: Pleasant, not in acute distress, AO x3, on 4 L oxygen supplementation HEENT: PERRLA, pupils bilaterally equal and reactive Chest:Bronchial breath sounds b/l ,decreased air entry, equal good air entry bilaterally, no more fine basal crackles CVS: S1-S2 regular, no murmurs, no tachycardia, no gallops, no rubs Abdomen: Soft, nontender, no organomegaly, bowel sounds present, morbidly obese Neuro: No focal deficits, no facial deformity, AO x3, power 5/5 in all limbs Data 11/03/22 05:29 11/03/22 05:29 A&P Assessment and plan (1) Respiratory failure with hypoxia: (2) Acute exacerbation of chronic obstructive airways disease: (3) Pneumonia: (4) Hypertension: (5) Type 2 diabetes mellitus: Plan Hypoxic respiratory failure secondary to COPD exacerbation with bilateral pneumonia. Appreciate CT chest results. D-dimer negative, COVID-19, flu swab negative. UA, bacterial antigen, Legionella, MRSA swab not yet collected. Sputum culture not yet collected. DuoNebs every 6 hour, budesonide twice daily. Oxygen supplementation keeping saturation over 88%. For now continue Solu-Medrol 60 mg every 6 hourly. We will start weaning within next 24 hours. Continue with IV ceftriaxone and oral azithromycin for now. Echocardiogram shows grade 1 diastolic dysfunction with a normal EF. IV Lasix 40 mg one-time. Cannot rule out underlying pulmonary hypertension. IV Lasix 40 mg 1 more time. Report output charting. Daily weights. Type 2 diabetes mellitus: A1c Found to be 7. New diagnosis. Given age A1c 7 is appropriate. We will hold off on starting any antidiabetic medications. Will most likely need to continue to monitor A1c 6 monthly. Hypertension: Not a known diagnosis. Goal blood pressure less than 140/90 mmHg. Started amlodipine 5 mg oral daily. CODE STATUS: Discussed in detail with patient again. She does not want to be intubated or resuscitated. DNR/DNI. Carb consistent diet. Heparin 5000 every 8 hourly for DVT prophylaxis Protonix for PUD prophylaxis. Attestations Medical Necessity Statement*: Requires further hospitalization for management of hypoxic respiratory failure in setting of bilateral pneumonia, COPD exacerbation Time Spent in Patient Care: Greater than 35 minutes Coding Level of Care Code Acute Code for [facility] Diagnoses Respiratory failure with hypoxia J96.91 Acute exacerbation of chronic obstructive airways disease J44.1 Pneumonia J18.9 Hypertension I10 Type 2 diabetes mellitus E11.9
[2022-11-03] MEDS: FUROsemide 10 mg/mL SDV 4mL 40 MG IVP (15:56)
[2022-11-03 16:59] LABS: Glucose Urine UA Norm (Normal); Protein Urine Neg (Negative); Urine Appearance Clear (CLEAR); Urine Color Yellow (Yellow); pH Urine 5 (5-7)
[2022-11-03 17:00] LABS: Add Urine Microscopic? YES; Bilirubin Urine Neg (Negative); Blood Urine Neg (Negative); Ketones Urine 1+ (Negative); Leukocyte Esterase Urine 1+ (Negative); Nitrate Urine Negative (Negative); Urobilinogen Urine Neg (Negative)
[2022-11-03 17:19] LABS: Add Urine Culture? No; Mucus Urine 2+ /hpf; Squamous Epithelial Cell Urine 25-40 /hpf (0-5)
[2022-11-03] MEDS: cefTRIAXone 1,000 MG in sodium chloride 0.9% (plus) 50 ML 100 MG IV (17:24)
[2022-11-04] VITALS (13 sets, daily range): BP systolic 132–150; BP diastolic 69–82; PULSE 65–103; RESP 15–20; TEMP 36.3–36.9; O2SAT 92–99
[2022-11-04] MEDS: ipratropium-albuterol 3 mL Neb INHALATION ×4 (02:36→20:50)
[2022-11-04] MEDS: heparin 5,000 unit/mL INJ 1 mL 5000 UNIT SUBCUT ×3 (04:33→20:41)
[2022-11-04 05:39] LABS: Basophils % 0.1 %; Hematocrit 43.6 % (37.0-47.0); Hemoglobin 13.9 g/dL (11.5-15.3); Lymphocytes # 0.8 10^3/uL (0.8-4.8); Lymphocytes % 5.8 %; Mean Corpuscular HGB Conc 31.9 g/dL (30.0-36.0); Mean Corpuscular Hemoglobin 28.7 pg (28.0-34.0); Mean Corpuscular Volume 90.1 fl (81-99); Mean Platelet Volume 11.2 fL (7.4-10.4); Monocytes # 0.5 10^3/uL (0.2-0.9); Monocytes % 3.5 %; Neutrophils # 12.01 10^3/uL (1.8-7.7); Nucleated Red Blood Cells % 0 %; Platelet Count 421 10^3/cmm (130-400); Red Blood Count 4.84 10^6/uL (4.1-5.3); Red Cell Distribution Width 13.8 % (12.1-15.1); White Blood Count 13.3 10^3/uL (4.0-10.0)
[2022-11-04 06:14] LABS: Alanine Aminotransferase 11 U/L (0-33); Albumin Level 4.1 g/dL (3.5-5.2); Alkaline Phosphatase 121 U/L (35-105); Anion Gap 21.2 (5-19); Aspartate Amino Transferase 17 U/L (0-32); Blood Urea Nitrogen 32 mg/dL (8-23); Calcium 9.8 mg/dL (8.5-10.5); Carbon Dioxide 27 mmol/L (22-29); Chloride 97 mmol/L (98-107); Globulin 3.3 g/dL (1.3-4.6); Glucose 178 mg/dL (65-115); Osmolality Calculated 303 mOsm/kg (285-295); Potassium 4.2 mmol/L (3.5-5.1); Sodium 141 mmol/L (136-145); Total Bilirubin 0.2 mg/dL (0.15-1.2); Total Protein 7.4 g/dL (6.6-8.7)
[2022-11-04] MEDS: budesonide 0.5 mg/2 mL Neb INHALATION ×2 (08:14→20:50)
[2022-11-04] MEDS: amlodipine 5 mg Tablet PO (09:53)
[2022-11-04] MEDS: pantoprazole 40 mg SDV IVP (09:53)
[2022-11-04] MEDS: docusate sodium 100 mg Capsule PO ×2 (09:53→17:51)
[2022-11-04] MEDS: azithromycin 250 mg Tablet 500 MG PO (09:58)
--- NOTE | 2022-11-04 16:16 | P.PN_ITS ---
Subjective Subjective: States that she is still slightly short of breath, but feeling much better today. She has been able to eat and drink a small amount. Says that she has not had a bowel movement, but she is voiding without difficulty. No other concerns today. Medications: Reviewed: Yes Vitals/I&O/Wt Last Vital Signs Temp 97.6 F 11/04/22 12:00 Pulse 100 11/04/22 14:30 Resp 17 11/04/22 14:20 BP 149/81 11/04/22 12:00 Pulse Ox 92 11/04/22 14:20 O2 Del Method 11/04/22 14:20 O2 Flow Rate 4 11/04/22 14:20 11/04/22 11/04/22 11/04/22 06:59 14:59 22:59 Intake Total 60 / 710 480 / 480 Balance 60 / 10 480 / 480 Weight last 48 hrs Weight 144 lb Weight 142 lb 9 oz Weight 135 lb Physical Exam Narrative: General: Cooperative patient in no apparent distress. Well deve loped. HEENT: Normocephalic, Atraumatic. External ears normal. Nasal passages patent without drainage. MMM. Heart: Regular rate and rhythm. Resp: Scattered Rales, mild tachypnea. No respiratory distress, no use of accessory muscles. Abd: Soft, nontender non-distended. Bowel sounds present 4 quadrants. Extremities: No edema. Skin: No rash or lesions on exposed areas. Data 11/04/22 05:15 11/04/22 05:15 Micro: Microbiology 11/02/22 16:07 Bacterial Antigens - Final Urine Kidney 11/03/22 10:49 MRSA Culture - Final Nose 11/02/22 16:07 Legionella Urinary Antigen - Final Urine,Clean Catch A&P Assessment and plan (1) Respiratory failure with hypoxia: (2) Acute exacerbation of chronic obstructive airways disease: (3) Pneumonia: (4) Hypertension: (5) Type 2 diabetes mellitus: Plan 72-year-old female admitted for Hypoxic respiratory failure secondary to COPD exacerbation with bilateral pneumonia. Patient with improvement in symtoms. Plan for discharge today. Transition to oral ABx and steroids. Home oxygen evaluation prior to discharge. Will hold on initiating diabetic medications until patient sees her PCP. Continue amlodipine for hypertension. Can send medications to her pharmacy. Follow up with PCP this week. CODE STATUS: DNR/DNI. Diet: Carb consistent DVT PPx: Heparin Attestations Medical Necessity Statement*: Plan for discharge today due to resolution of symptoms and improvement in overall health. Time Spent in Patient Care: 16 - 35 minutes Coding Level of Care Code Acute Code for [facility] Diagnoses Respiratory failure with hypoxia J96.91 Acute exacerbation of chronic obstructive airways disease J44.1 Pneumonia J18.9 Hypertension I10 Type 2 diabetes mellitus E11.9
[2022-11-04] MEDS: predniSONE 20 mg Tablet 40 MG PO (17:51)
[2022-11-04] MEDS: cefTRIAXone 1,000 MG in sodium chloride 0.9% (plus) 50 ML 100 MG IV (17:52)
[2022-11-05] VITALS (8 sets, daily range): BP systolic 125–157; BP diastolic 67–77; PULSE 73–93; RESP 16–18; TEMP 36.4–36.5; O2SAT 90–100
[2022-11-05] MEDS: ipratropium-albuterol 3 mL Neb INHALATION ×2 (03:10→07:42)
[2022-11-05] MEDS: heparin 5,000 unit/mL INJ 1 mL 5000 UNIT SUBCUT (04:26)
[2022-11-05] MEDS: fixodent 39 gm Tube 1 APPLIC DENTAL (05:02)
[2022-11-05 05:12] LABS: Basophils % 0.1 %; Hematocrit 43.7 % (37.0-47.0); Hemoglobin 13.5 g/dL (11.5-15.3); Lymphocytes # 0.7 10^3/uL (0.8-4.8); Mean Corpuscular HGB Conc 30.9 g/dL (30.0-36.0); Mean Corpuscular Hemoglobin 28.7 pg (28.0-34.0); Mean Corpuscular Volume 92.8 fl (81-99); Mean Platelet Volume 10.2 fL (7.4-10.4); Monocytes # 0.4 10^3/uL (0.2-0.9); Monocytes % 2.9 %; Neutrophils # 12.51 10^3/uL (1.8-7.7); Neutrophils % 91.3 %; Nucleated Red Blood Cells % 0 %; Platelet Count 358 10^3/cmm (130-400); Red Blood Count 4.71 10^6/uL (4.1-5.3); Red Cell Distribution Width 13.5 % (12.1-15.1); White Blood Count 13.7 10^3/uL (4.0-10.0)
[2022-11-05 05:29] LABS: Alanine Aminotransferase 11 U/L (0-33); Albumin Level 3.5 g/dL (3.5-5.2); Alkaline Phosphatase 111 U/L (35-105); Anion Gap 14.9 (5-19); Aspartate Amino Transferase 14 U/L (0-32); Blood Urea Nitrogen 35 mg/dL (8-23); Calcium 9.8 mg/dL (8.5-10.5); Carbon Dioxide 26 mmol/L (22-29); Chloride 100 mmol/L (98-107); Globulin 3.3 g/dL (1.3-4.6); Glucose 188 mg/dL (65-115); Osmolality Calculated 297 mOsm/kg (285-295); Potassium 3.9 mmol/L (3.5-5.1); Sodium 137 mmol/L (136-145); Total Bilirubin 0.2 mg/dL (0.15-1.2); Total Protein 6.8 g/dL (6.6-8.7)
[2022-11-05] MEDS: budesonide 0.5 mg/2 mL Neb INHALATION (07:42)
[2022-11-05] MEDS: amlodipine 5 mg Tablet PO (09:30)
[2022-11-05] MEDS: azithromycin 250 mg Tablet 500 MG PO (09:30)
[2022-11-05] MEDS: predniSONE 20 mg Tablet 40 MG PO (09:31)
--- NOTE | 2022-11-05 10:14 | PM.DCS ---
Discharge Providers Date of Admission: 11/02/22 17:58 Date of Discharge: November 05, 2022 Attending Provider at Admission: Ed Powell MD Attending Provider at Discharge: Cresencio Steiner DO Primary Care Provider: BASIA Chandra Diagnoses at Discharge Discharge Diagnosis (1) Respiratory failure with hypoxia: Status: Acute (2) Acute exacerbation of chronic obstructive airways disease: Status: Acute (3) Pneumonia: Status: Acute (4) Hypertension: Status: Acute (5) Type 2 diabetes mellitus: Status: Acute Reason for Visit Reason for Visit: SOB Brief History: 72 year old female with no significant past medical history advanced COPD on inhalers, remote history of ischemic colitis from ulcerative colitis not on treatment not on home oxygen presented to the ER with cough and shortness of breath for the last month. She presented with shortness of breath to the point of conversational dyspnea and found to be hypoxic in the ER to the 70's and required supplemental oxygen. . SHe did continue to remain tachypneic hence hospitalist admission.? She received nebulization and 125 mg of IV Solu-Medrol. Hospital Course Hospital Course SHe was admitted and continued on supplemental oxygen, steroids, IV antibiotics and breathing treatments. she continued to require oxygen to maintain her oxygen sats until discharge. at time of discharge, she was evaluated for home O2 but did not qualify and was able to maintain her oxygen greater than 90% with activity. She was started on antihypertensive therapy due to elevated BP, which improved with treatment. It was recommended that she follow up with her PCP to discuss this further. She was discharged in stable and improved condition and recommended that she see her PCP within the next one week. Physical Exam Narrative: General: Cooperative patient in no apparent distress. Well developed. HEENT: Normocephalic, Atraumatic. External ears normal. Nasal passages patent without drainage. MMM. Heart: Regular rate and rhythm. Resp: Scattered Rales, mild tachypnea. No respiratory distress, no use of accessory muscles. Abd: Soft, nontender non-distended. Bowel sounds present 4 quadrants. Extremities: No edema. Skin: No rash or lesions on exposed areas. Discharge Data Studies Completed and Pending Completed Studies During Hospitalization Category Date Time Status CT chest wo con [id number] Stat Cat Scan 11/02/22 18:56 Completed XR chest 2V* [id number] Stat Exams 11/02/22 14:48 Completed CV. echo complete* [id number] Routine Ultrasound 11/02/22 17:54 Completed Pending at discharge Category Date Time Status Sputum Culture and Gram Stain Stat Lab 11/02/22 19:01 Uncollected Radiology Impressions Chest X-Ray 11/02/22 14:48 IMPRESSION: 1. Findings suspicious for active airway disease (bronchitis) right lower lobe. 2. COPD with chronic biapical pleural/parenchymal fibrotic changes, stable. Chest CT 11/02/22 18:56 IMPRESSION: 1. Scattered areas of ground-glass opacification and areas of reticulonodular interstitial thickening in both lungs. Findings are suspicious for pneumonia, including atypical organisms. Recommend followup chest imaging to insure resolution of these findings. 2. Cylindrical bronchiectasis in the right and left upper lobes. 3. Noncalcified nodule in the right upper lobe with an average measurement of 9 mm (series 4, image 14). For both low risk and high risk patients, consider CT Chest at 3 months, PET/CT, or biopsy. (Reference: Marissa) 4. Incidental/nonacute findings are listed in the report. COMMENTS: In the absence of a history or active diagnosis of lung cancer, it is recommended that this patient with emphysema be evaluated for enrollment in a low dose CT lung cancer screening program. REFERENCES: Marissa Razo, et al. Guidelines for Management of Incidental Pulmonary Nodules Detected on CT Images: From the Fleischner Society 2017. Radiology. 2017;284(1):228-243. Laboratory Results WBC 13.7 10^3/uL (4.0-10.0) H 11/05/22 04:42 RBC 4.71 10^6/uL (4.1-5.3) 11/05/22 04:42 Hgb 13.5 g/dL (11.5-15.3) 11/05/22 04:42 Hct 43.7 % (37.0-47.0) 11/05/22 04:42 MCV 92.8 fl (81-99) 11/05/22 04:42 MCH 28.7 pg (28.0-34.0) 11/05/22 04:42 MCHC 30.9 g/dL (30.0-36.0) 11/05/22 04:42 RDW 13.5 % (12.1-15.1) 11/05/22 04:42 Plt Count 358 10^3/cmm (130-400) 11/05/22 04:42 MPV 10.2 fL (7.4-10.4) 11/05/22 04:42 Neut % (Auto) 91.3 % 11/05/22 04:42 Lymph % (Auto) 5.0 % 11/05/22 04:42 [place] % (Auto) 2.9 % 11/05/22 04:42 Eos % (Auto) 0.0 % 11/05/22 04:42 Baso % (Auto) 0.1 % 11/05/22 04:42 Neut # (Auto) 12.51 10^3/uL (1.8-7.7) H 11/05/22 04:42 Lymph # (Auto) 0.7 10^3/uL (0.8-4.8) L 11/05/22 04:42 [place] # (Auto) 0.4 10^3/uL (0.2-0.9) 11/05/22 04:42 Eos # (Auto) 0.0 10^3/uL (0.0-0.8) 11/05/22 04:42 Baso # (Auto) 0.0 10^3/uL (0.0-0.1) 11/05/22 04:42 Nucleated RBC % (auto) 0 % 11/05/22 04:42 Nucleated RBCs # 0.0 /100WBC 11/05/22 04:42 D-Dimer 0.44 ug/mIFEU (0-0.59) 11/02/22 17:45 Specimen Type Arterial 11/02/22 17:29 Sample Site Radial, left 11/02/22 17:29 ABG pH 7.45 (7.35-7.45) 11/02/22 17:29 ABG pCO2 40.5 mmHg (35-45) 11/02/22 17:29 ABG pO2 62.5 mmHg (80.0-100.0) L 11/02/22 17:29 ABG HCO3 28.0 mmol/L (22-26) H 11/02/22 17:29 ABG O2 Saturation 93.4 11/02/22 17:29 ABG Base Excess 3.7 mmol/L (-2.0-2.0) H 11/02/22 17:29 Jax Test Pos 11/02/22 17:29 A-a O2 Gradient 11.4 mmHg (5-10) H 11/02/22 17:29 Hematocrit 41.6 % (37-47) 11/02/22 17:29 Hgb O2 Saturation 91.4 % (95-100) L 11/02/22 17:29 Carboxyhemoglobin 1.3 %THgb (0.4-20.1) 11/02/22 17: Methemoglobin 0.8 % (0.4-1.5) 11/02/22 17:29 Total Hemoglobin 13.6 g/dL (12-16) 11/02/22 17:29 Sodium 142.0 mmol/L (131-143) 11/02/22 17:29 Potassium 3.7 mmol/L (3.5-5.0) 11/02/22 17:29 Glucose 108.0 mg/dL (70-115) 11/02/22 17:29 Ionized Calcium 1.2 mmol/L (1.1-1.4) 11/02/22 17:29 O2 Delivery Device Nc 11/02/22 17:29 O2 Liters/Min 2.0 % 11/02/22 17:29 FiO2 28.0 % 11/02/22 17:29 Gun Profiler ID Cak 11/02/22 17:29 Sodium 137 mmol/L (136-145) 11/05/22 04:42 Potassium 3.9 mmol/L (3.5-5.1) 11/05/22 04:42 Chloride 100 mmol/L (98-107) 11/05/22 04:42 Carbon Dioxide 26 mmol/L (22-29) 11/05/22 04:42 Anion Gap 14.9 (5-19) 11/05/22 04:42 BUN 35 mg/dL (8-23) H 11/05/22 04:42 Creatinine 0.6 mg/dL (0.5-0.9) 11/05/22 04:42 GFR Calculation Not Reportable 11/05/22 04:42 Glucose 188 mg/dL (65-115) H 11/05/22 04:42 Estimat Average Glucose 154 11/03/22 05:29 Hemoglobin A1c 7.0 % (4.0-6.0) H 11/03/22 05:29 Calculated Osmolality 297 mOsm/kg (285-295) H 11/05/22 04:42 Calcium 9.8 mg/dL (8.5-10.5) 11/05/22 04:42 Phosphorus 3.2 mg/dL (2.5-4.5) 11/03/22 05:29 Magnesium 2.2 mg/dL (1.7-2.3) 11/03/22 05:29 Iron 71 ug/dL (37-145) 11/02/22 Unknown TIBC 278 mcg/dl 11/02/22 Unknown % Saturation 25.5 % (20-50) 11/02/22 Unknown Unsat Iron Binding 207 ug/dL (112-347) 11/02/22 Unknown Total Bilirubin 0.2 mg/dL (0.15-1.2) 11/05/22 04:42 AST 14 U/L (0-32) 11/05/22 04:42 ALT 11 U/L (0-33) 11/05/22 04:42 Alkaline Phosphatase 111 U/L (35-105) H 11/05/22 04:42 NT-Pro-B Natriuret Pep 224 pg/mL (0-125) H 11/02/22 15:38 Total Protein 6.8 g/dL (6.6-8.7) 11/05/22 04:42 Albumin 3.5 g/dL (3.5-5.2) 11/05/22 04:42 Globulin 3.3 g/dL (1.3-4.6) 11/05/22 04:42 Triglycerides 103 mg/dL (0-150) 11/03/22 05:29 Cholesterol 232 mg/dL (0-200) H 11/03/22 05:29 LDL Cholesterol, Calc 144 mg/dL (50-129) H 11/03/22 05:29 Total VLDL Cholesterol 21 mg/dL (0-30) 11/03/22 05:29 HDL Cholesterol 67 mg/dL (60-100) 11/03/22 05:29 Cholesterol/HDL Ratio 3.46 mg/dL (0.0-4.40) 11/03/22 05:29 Vitamin B12 367 pg/mL (232-1245) 11/02/22 Unknown Folate 9.1 ng/mL (4.8-37.3) 11/02/22 Unknown Procalcitonin 0.02 ng/mL (0-0.5) 11/02/22 Unknown TSH 0.72 uIU/mL (0.27-4.20) 11/02/22 Unknown Urine Color Yellow (Yellow) 11/02/22 16:07 Urine Appearance Clear (CLEAR) 11/02/22 16:07 Urine pH 5 (5-7) 11/02/22 16:07 Ur Specific [place] 1.030 (1.005-1.030) 11/02/22 16:07 Urine Protein Neg (Negative) 11/02/22 16:07 Urine Glucose (UA) Norm (Normal) 11/02/22 16:07 Urine Ketones 1+ (Negative) H 11/02/22 16:07 Urine Blood Neg (Negative) 11/02/22 16:07 Urine Nitrate Negative (Negative) 11/02/22 16:07 Urine Bilirubin Neg (Negative) 11/02/22 16:07 Urine Urobilinogen Neg mg/dL (Negative) 11/02/22 16:07 Ur Leukocyte Esterase 1+ (Negative) H 11/02/22 16:07 Urine RBC None /hpf (0-2) 11/02/22 16:07 Urine WBC None /hpf (0-5) 11/02/22 16:07 Ur Squamous Epith Cells 25-40 /hpf (0-5) H 11/02/22 16:07 Amorphous Sediment Not Reportable 11/02/22 16:07 Urine Bacteria None /hpf (NONE) 11/02/22 16:07 Urine Mucus 2+ /hpf 11/02/22 16:07 Coronavirus 229E (PCR) Not detected (NOT DETECT) 11/02/22 Unknown Influenza Type A Ag negative (Negative) 11/02/22 17:55 Influenza Type B Ag negative (Negative) 11/02/22 17:55 SARS-CoV-2 (PCR) Not detected (NOT DETECT) 11/02/22 Unknown Vitals Last Vital Signs Temp 97.5 F L 11/05/22 08:00 Pulse 77 11/05/22 08:00 Resp 17 11/05/22 08:00 BP 154/67 11/05/22 08:00 Pulse Ox 94 11/05/22 09:30 O2 Del Method 11/05/22 08:00 O2 Flow Rate 4 11/05/22 08:00 Discharge Plan Discharge Patient Disposition: Home Condition: Stable Prescriptions: New azithromycin 250 mg Tablet 500 mg PO DAILY Qty: 2 0RF amlodipine 5 mg Tablet 5 mg PO DAILY Qty: 30 0RF cefdinir 300 mg capsule 300 mg PO BID 4 Days Qty: 8 0RF prednisone 20 mg Tablet See Rx Instructions .ROUTE .COMPLEX Qty: 11 0RF Rx Instructions: Take 2 tabs by mouth x 3 days, then 1 tab x 3 days, then 1/2 tab x 3 days. Spiriva Respimat 1.25 mcg/actuation mist 2 inh inhalation DAILY Qty: 4 0RF Continued albuterol sulfate 90 mcg/actuation HFA aerosol inhaler 2 puff INHALATION Q4H PRN (Reason: Cough) Discharge Orders: Discharge Order (Routine); Ordered 11/05/22 Ordered By: Cresencio Steiner Referrals: Nidhi Jessica, [employer] [Primary Care Provider] - 1-3 days (Please call sunday to schedule your followup appointment with Nidhi Jessica. If you have any questions or concerns please call the office at [phone].) Discharge Diet: Advance as tolerated Discharge Activity: Resume usual activity Patient Instructions: Type 2 Diabetes, Viral Pneumonia (DC), Chronic Hypertension (DC), Hypertension and Diabetes (DC), Opioid Safety, Pain Management Plan of Treatment: Prescriptions sent to the pharmacy. Continue until course is completed. Follow up with PCP in 2-5 days. Discharge Attestations Time Spent in Discharge Care*: greater than 30 min Specific Discharge Activities: educating patient, documenting/other paperwork and evaluating patient/reviewing data Quality Metrics Clinical Quality Measures [ No reported AMI, CVA or VTE this stay] Coding Level of Care Code Acute Chg FW DC note Diagnoses Respiratory failure with hypoxia J96.91 Acute exacerbation of chronic obstructive airways disease J44.1 Pneumonia J18.9 Hypertension I10 Type 2 diabetes mellitus E11.9
--- NOTE | 2022-11-05 11:15 | PC.NURSE ---
Prescriptions called into [facility] in [place].
== END 2022-11-05 13:29 | disposition home or self-care (01) | DRG 193 ==
LOC: ER 17:05 → MEDSURG 18:59
PROVIDERS: Nurse Practitioner Family; Admitting Provider Student in an Organized Health Care Education/Training Program; Emergency Provider Family Medicine; PCP Nurse Practitioner; Visit Provider Family Medicine
DX: J18.9 Pneumonia, unspecified organism (principal); J96.91 Respiratory failure, unspecified with hypoxia; J44.1 Chronic obstructive pulmonary disease with (acute) exacerbation; J44.0 Chronic obstructive pulmonary disease with (acute) lower respiratory infection; Z79.51 Long term (current) use of inhaled steroids; Z86.16 Personal history of COVID-19; Z87.891 Personal history of nicotine dependence; I27.20 Pulmonary hypertension, unspecified; E11.9 Type 2 diabetes mellitus without complications; I10 Essential (primary) hypertension
CPT/HCPCS: 36415; 36600; 71046; 71250; 80051; 80053; 80061; 81001; 82330; 82607; 82746; 82805; 83036; 83540; 83550; 83735; 83880; 84100; 84145; 84443; 85025; 85378; 86403; 87449; 87635; 87641; 87804; 93005; 93306; 94640; 94760; 96372; 96374; 99285; C9113; J0696; J1644; J1940; J2930; J3490; J7512; J7626; Q0144

== ENCOUNTER 2022-11-28 14:13 | Emergency (ER) | payer MEDICARE, SELFPAY ==
[2022-11-28] VITALS (19 sets, daily range): BP systolic 144–177; BP diastolic 78–105; PULSE 97–113; RESP 18–28; TEMP 36.6; O2SAT 86–95; BMI 21.1
--- NOTE | 2022-11-28 16:00 | XRR_ITS ---
PROCEDURE INFORMATION: Exam: XR Chest Exam date and time: 11/28/2022 4:07 PM Age: 72 years old Clinical indication: Cough and dyspnea; Additional info: Dyspnea/cough TECHNIQUE: Imaging protocol: Radiologic exam of the chest. Views: 1 view. COMPARISON: CT chest wo con [id number] 11/02/2022 8:52 PM FINDINGS: Lungs: Stable moderate hyperinflation of the lungs. Calcified granulomas in the left lower lobe. No focal consolidation. No pulmonary edema. 1.0 cm nodule in the right upper lobe is stable compared with prior CT scan. Pleural spaces: Bilateral apical pleural thickening. No pleural effusion. No pneumothorax. Heart/Mediastinum: The cardiac silhouette and mediastinal contours are unremarkable. Vasculature: Stable vascular calcifications in the aorta. Bones/joints: Unremarkable for age. XR/XR chest 1V portable [id number] IMPRESSION: 1. No acute cardiopulmonary process. 2. 1.0 cm nodule in the right upper lobe is stable compared with prior CT scan. Please refer to dictation for prior CT scan of the chest dated 11/02/2022 for full description of these findings and prior recommendation. 3. Incidental/nonacute findings are listed in the report.
--- NOTE | 2022-11-28 16:11 | W.ED.SOB ---
HPI - SOB/Dyspnea General: Chief Complaint: Shortness of Breath/Dyspnea Stated Complaint: SOB Time Seen by Provider: 11/28/22 14:22 Source: patient Mode of arrival: ambulatory History of Present Illness: HPI Narrative: 72-year-old female presents emergency complaining of shortness of breath with any activity. She is a lifelong smoker quit just a few months ago in August 2022 she had a diagnosis of COVID and has had further problems since that time. She currently uses Spiriva but has not been using it regularly because she states it makes her feel worse she has been using her albuterol 4 and 5 times a day for an extended period of time. When I came in the room she is not having any chest pain she does have a nonproductive cough that is worsened from her baseline. She is also noted to be tachypneic with pursed lip breathing. She is normally not on oxygen at this time she is on 2 L to maintain a sat in the low 90s. MD elicited complaint: shortness of breath and cough Pertinent past history: COPD Onset (ago): hour(s) Timing: constant Exacerbating factors: nothing Relieving factors: nothing Known history of: COPD Associated symptoms: Reports cough; Deny abdominal pain, chest congestion, chest pain, diaphoresis, dizziness, extremity pain, fever(s), hemoptysis, lightheadedness, myalgias, nausea, orthopnea, palpitations, paresthesias, polydipsia, polyuria, rash, sense of impending doom, syncope or vomiting Treatment prior to arrival: bronchodilator Review of Systems Const: Denies: fever(s), chills, fatigue, malaise or diaphoresis ENMT: Denies: throat pain, ear or mastoid pain, nasal discharge or nasal congestion Card: Denies: chest pain, palpitations, lightheadedness, syncope or orthopnea Resp: Denies: hemoptysis or chest congestion GI: Denies: abdominal pain, nausea or vomiting : Denies: flank pain, difficulty voiding, dysuria, urinary frequency or urinary urgency Musc: Denies: extremity pain Skin/Breast: Denies: rash or pruritus Neuro: Denies: dizziness Endo: Denies: polyuria or polydipsia PFS ED PFSH: Medical History (Updated 11/28/22 @ 17:33 by Allan Puente DO) COPD (chronic obstructive pulmonary disease) COVID-19 Diverticulitis Hypertension Ischemic colitis Lower GI bleed Osteoarthritis Rheumatoid arthritis Type 2 diabetes mellitus Ulcerative colitis Surgical History History of colonoscopy History of partial hysterectomy S/P tonsillectomy Family History Other CAD (coronary artery disease) Denies family history of Diabetes Cancer Social History Smoking and tobacco status: former smoker Alcohol intake: never Caregiver/support person: No Lives independently: Yes Household members: none Housing: House Pets and animals: Yes Physical Exam Const: GENERAL APPEARANCE: cooperative and comfortable ORIENTATION/CONSCIOUSNESS: Yes awake, Yes oriented to person, Yes oriented to place and Yes oriented to time HENMT: COMMON NORMALS: normocephalic, atraumatic and hearing grossly normal bilaterally HEAD & SCALP: normocephalic and atraumatic Resp: COMMON NORMALS: normal respiratory effort, No retractions and No use of accessory muscles AUSCULTATION: wheezes Cardio: COMMON NORMALS: regular rhythm and No murmurs present (Cardio) RATE: tachycardic RHYTHM: regular rhythm GI: COMMON NORMALS: Soft to palpation and No hepatosplenomegaly present AUSCULTATION: Yes normoactive bowel sounds PALPATION: Yes Soft to palpation, No Tenderness to palpation present (GI), No Guarding due to palpation present (GI) and Yes No hepatosplenomegaly present Extremity: COMMON NORMALS: normal to inspection, capillary refill normal, no clubbing, cyanosis or edema, no calf tenderness and no pedal edema Neuro: SENSORIUM/ORIENTATION: Yes oriented to person, Yes oriented to place and Yes oriented to time Skin: COMMON NORMALS: no rashes or lesions noted GENERAL SKIN EXAM: no rashes or lesions noted Course Vital Signs: Vital signs: Vital Signs Temperature 97.8 F 11/28/22 14:53 Pulse Rate 98 11/28/22 19:01 Respiratory Rate 18 11/28/22 19:01 Blood Pressure 162/78 11/28/22 19:01 Pulse Oximetry 93 11/28/22 19:01 Oxygen Delivery Me thod 11/28/22 17:07 Oxygen Flow Rate 3 11/28/22 17:07 MDM - SOB/Dyspnea Medical Decision Making Acute exacerbation of COPD. No sign of pneumonia pneumothorax is no pleural effusion. EKG and labs reviewed. Her white count and hemoglobin are normal she does not appear to be in acute congestive heart failure there is no sign of PE. He responds well to interventions for COPD will discharge home with steroid taper. Aggressive use of albuterol. Also think she will benefit from addition of Advair. Encouraged her to follow-up with her primary care doctor and/or pulmonology. Medical Records I reviewed the patient's medical records. Lab Data I reviewed the patient's lab results. 11/28/22 16:20 11/28/22 16:20 Labs/Radiology: Radiology Impressions Chest X-Ray 11/28/22 16:00 IMPRESSION: 1. No acute cardiopulmonary process. 2. 1.0 cm nodule in the right upper lobe is stable compared with prior CT scan. Please refer to dictation for prior CT scan of the chest dated 11/02/2022 for full description of these findings and prior recommendation. 3. Incidental/nonacute findings are listed in the report. Laboratory Results WBC 6.0 10^3/uL (4.0-10.0) 11/28/22 16:20 RBC 4.84 10^6/uL (4.1-5.3) 11/28/22 16:20 Hgb 13.6 g/dL (11.5-15.3) 11/28/22 16:20 Hct 43.0 % (37.0-47.0) 11/28/22 16:20 MCV 88.8 fl (81-99) 11/28/22 16:20 MCH 28.1 pg (28.0-34.0) 11/28/22 16:20 MCHC 31.6 g/dL (30.0-36.0) 11/28/22 16:20 RDW 14.2 % (12.1-15.1) 11/28/22 16:20 Plt Count 318 10^3/cmm (130-400) 11/28/22 16:20 MPV 9.6 fL (7.4-10.4) 11/28/22 16:20 Neut % (Auto) 62.3 % 11/28/22 16:20 Lymph % (Auto) 24.4 % 11/28/22 16:20 [place] % (Auto) 6.7 % 11/28/22 16:20 Eos % (Auto) 5.8 % 11/28/22 16:20 Baso % (Auto) 0.5 % 11/28/22 16:20 Neut # (Auto) 3.73 10^3/uL (1.8-7.7) 11/28/22 16:20 Lymph # (Auto) 1.5 10^3/uL (0.8-4.8) 11/28/22 16:20 [place] # (Auto) 0.4 10^3/uL (0.2-0.9) 11/28/22 16:20 Eos # (Auto) 0.4 10^3/uL (0.0-0.8) 11/28/22 16:20 Baso # (Auto) 0.0 10^3/uL (0.0-0.1) 11/28/22 16:20 Nucleated RBC % (auto) 0 % 11/28/22 16:20 Nucleated RBCs # 0.0 /100WBC 11/28/22 16:20 Sodium 142 mmol/L (136-145) 11/28/22 16:20 Potassium 3.2 mmol/L (3.5-5.1) L 11/28/22 16:20 Chloride 102 mmol/L (98-107) 11/28/22 16:20 Carbon Dioxide 29 mmol/L (22-29) 11/28/22 16:20 Anion Gap 14.2 (5-19) 11/28/22 16:20 BUN 17 mg/dL (8-23) 11/28/22 16:20 Creatinine 0.6 mg/dL (0.5-0.9) 11/28/22 16:20 GFR Calculation Not Reportable 11/28/22 16:20 Glucose 110 mg/dL (65-115) 11/28/22 16:20 Calculated Osmolality 296 mOsm/kg (285-295) H 11/28/22 16:20 Calcium 9.1 mg/dL (8.5-10.5) 11/28/22 16:20 Discharge Plan Discharge Patient Disposition: Home Clinical Impression: Acute exacerbation of chronic obstructive airways disease Condition: Stable Prescriptions: New prednisone 20 mg tablet 20 mg PO TID Qty: 15 0RF Rx Instructions: 1 p.o. 3 times daily x3 days, 1 p.o. twice daily x2 days, 1 p.o. daily x2 days Advair Diskus 250-50 mcg/dose blister with device 1 inh inhalation BID Qty: 60 0RF ipratropium-albuterol 0.5 mg-3 mg(2.5 mg base)/3 mL solution for nebulization 3 ml inhalation Q6H PRN (Reason: shortness of breath or wheezing) Qty: 180 0RF No Action albuterol sulfate 90 mcg/actuation HFA aerosol inhaler 2 puff INHALATION Q4H PRN (Reason: Cough) azithromycin 250 mg Tablet 500 mg PO DAILY Qty: 2 0RF amlodipine 5 mg Tablet 5 mg PO DAILY Qty: 30 0RF prednisone 20 mg Tablet See Rx Instructions .ROUTE .COMPLEX Qty: 11 0RF Rx Instructions: Take 2 tabs by mouth x 3 days, then 1 tab x 3 days, then 1/2 tab x 3 days. Spiriva Respimat 1.25 mcg/actuation mist 2 inh inhalation DAILY Qty: 4 0RF Discharge Orders: Discharge ED (Routine); Ordered 11/28/22 Ordered By: Allan Puente Other Ambulatory Orders: DME: Nebulizer with Neb Kit (Order) Location: None Selected Ordered By: Allan Puente DME: Oxygen (Order) Location: None Selected Ordered By: Allan Puente Referrals: Nidhi Jessica FNP [Primary Care Provider] - Patient Instructions: Opioid Safety, Pain Management Activity Restrictions/Additional Instructions: You are seen today for exacerbation of your COPD. You do require oxygen at 3 L/min. Recommend that you stop smoking. Start the Advair 1 puff twice daily, continue the Spiriva daily. You can use the DuoNebs as needed for acute difficulty with breathing. Coding Level of Care Code ED [employer]iler for Louise Montero
[2022-11-28 16:36] LABS: Basophils % 0.5 %; Eosinophils # 0.4 10^3/uL (0.0-0.8); Eosinophils % 5.8 %; Hemoglobin 13.6 g/dL (11.5-15.3); Lymphocytes # 1.5 10^3/uL (0.8-4.8); Lymphocytes % 24.4 %; Mean Corpuscular HGB Conc 31.6 g/dL (30.0-36.0); Mean Corpuscular Hemoglobin 28.1 pg (28.0-34.0); Mean Corpuscular Volume 88.8 fl (81-99); Mean Platelet Volume 9.6 fL (7.4-10.4); Monocytes # 0.4 10^3/uL (0.2-0.9); Monocytes % 6.7 %; Neutrophils # 3.73 10^3/uL (1.8-7.7); Neutrophils % 62.3 %; Nucleated Red Blood Cells % 0 %; Platelet Count 318 10^3/cmm (130-400); Red Blood Count 4.84 10^6/uL (4.1-5.3); Red Cell Distribution Width 14.2 % (12.1-15.1)
--- NOTE | 2022-11-28 16:57 | ECG_ITS ---
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 Measurements Intervals [place] Rate: 96 P: 78 TN: 141 QRS: 70 QRSD: 77 T: 63 QT: 336 QTc: 426 Interpretive Statements SINUS RHYTHM ANTEROSEPTAL MYOCARDIAL INFARCTION , OF INDETERMINATE AGE [40+ ms Q WAVE IN V1-V4] Compared to ECG 11/02/2022 20:36:29 No significant changes Electronically Signed On 11-28-2022 18:08:38 BUILDING MAINTENANCE MECHANIC by Albin Hurt M.D. [id number]
[2022-11-28] MEDS: ipratropium-albuterol 3 mL Neb INHALATION (16:59)
[2022-11-28 17:12] LABS: Anion Gap 14.2 (5-19); Blood Urea Nitrogen 17 mg/dL (8-23); Calcium 9.1 mg/dL (8.5-10.5); Carbon Dioxide 29 mmol/L (22-29); Chloride 102 mmol/L (98-107); Glucose 110 mg/dL (65-115); Osmolality Calculated 296 mOsm/kg (285-295); Potassium 3.2 mmol/L (3.5-5.1); Sodium 142 mmol/L (136-145)
--- NOTE | 2022-11-28 18:54 | PC.NURSE ---
REPORT GIVEN TO MO[facility] SANTO ASSUMED CARE.
== END 2022-11-28 19:44 | disposition home or self-care (01) ==
PROVIDERS: Emergency Provider Family Medicine; PCP Nurse Practitioner
DX: J44.1 Chronic obstructive pulmonary disease with (acute) exacerbation (principal); Z87.891 Personal history of nicotine dependence; I10 Essential (primary) hypertension; E11.9 Type 2 diabetes mellitus without complications
CPT/HCPCS: 36415; 71045; 80048; 85025; 93005; 94640; 96374; 99285; J2930

== ENCOUNTER → 2022-12-26 13:42 | Outpatient (BNVA) | payer MEDICARE, SELFPAY | PROVIDERS: PCP Nurse Practitioner; Visit Provider Internal Medicine Pulmonary Disease | DX: R91.8 Other nonspecific abnormal finding of lung field (principal); J44.9 Chronic obstructive pulmonary disease, unspecified; Z87.891 Personal history of nicotine dependence | CPT/HCPCS: 99204 ==

== ENCOUNTER 2023-01-11 08:48 | Outpatient (CLI) | payer MEDICARE, SELFPAY ==
--- NOTE | 2023-01-11 09:00 | CTR_ITS ---
PROCEDURE INFORMATION: Exam: CT Chest Without Contrast; Diagnostic Exam date and time: 01/11/2023 9:01 AM Age: 72 years old Clinical indication: Shortness of breath; Patient HX: Severe SOB, requiring o2 since August of 2022; Additional info: Resolution of pneumonia, CT chest to check for resolution of pneumonia TECHNIQUE: Imaging protocol: Diagnostic computed tomography of the chest without contrast. Radiation optimization: All CT scans at this facility use at least one of these dose optimization techniques: automated exposure control; mA and/or kV adjustment per patient size (includes targeted exams where dose is matched to clinical indication); or iterative reconstruction. REPORTING DATA: Count of CT and Cardiac NM exams in prior 12 months: This patient has received [address] and 0 known cardiac nuclear medicine studies in the 12 months prior to the current study. COMPARISON: CT chest wo con [id number] 11/02/2022 8:52 PM RADIATION DOSE METRICS: Total DLP (mGy-cm): 184.59 FINDINGS: Lungs: Mild paraseptal and moderate centrilobular emphysema. Redemonstrated biapical pleuroparenchymal scarring. Similar 1 cm right upper lobe pulmonary nodule. Some scattered tree-in-bud nodularity is seen in the lungs bilaterally, most conspicuous in the right middle lobe and lingula. Calcified granulomas in the left lower lobe. Similar spiculated ground-glass opacity in the left upper lobe measuring up to 1 cm (series 3, image 17). New small platelike opacity in the right middle lobe likely reflect atelectasis. Redemonstrated bronchiectasis and bronchial wall thickening in the upper lungs. Pleural spaces: Unremarkable. No pneumothorax. No pleural effusion. Heart: Unremarkable. No cardiomegaly. No pericardial effusion. Coronary arteries: Mild coronary artery calcification. Lymph nodes: Unremarkable. No enlarged lymph nodes. Vasculature: Unremarkable. No aortic aneurysm. Bones/joints: Remote left rib fracture. Soft tissues: Unremarkable. CT/CT chest wo con [id number] IMPRESSION: 1. No substantial change in the appearance of the chest. Findings are most suggestive of chronic atypical infection such as MAC. 2. Similar 1 cm solid right upper lobe nodule as well as a 1 cm ground-glass left upper lobe nodule. For patients at low risk (minimal or absent history of smoking and of other known risk factors), recommend CT Chest at 3-6 months, then consider CT Chest at 18-24 months. For patients at high risk (history of smoking or of other known risk factors), recommend CT Chest at 3-6 months, then CT Chest at 18-24 months. (Reference: Marissa) COMMENTS: In the absence of a history or active diagnosis of lung cancer, it is recommended that this patient with emphysema be evaluated for enrollment in a low dose CT lung cancer screening program. REFERENCES: Marissa Razo, et al. Guidelines for Management of Incidental Pulmonary Nodules Detected on CT Images: From the Fleischner Society 2017. Radiology. 2017;284(1):228-243.
== END 2023-01-11 08:49 | disposition home or self-care (01) ==
PROVIDERS: PCP Nurse Practitioner; Visit Provider Internal Medicine Pulmonary Disease
DX: J18.9 Pneumonia, unspecified organism (principal); J44.9 Chronic obstructive pulmonary disease, unspecified; R91.1 Solitary pulmonary nodule
CPT/HCPCS: 71250

== ENCOUNTER 2023-01-25 10:17 | Outpatient (CLI) | payer MEDICARE, SELFPAY ==
[2023-01-25 10:50] VITALS: PULSE 88; RESP 20; O2SAT 97
[2023-01-25] MEDS: albuterol 2.5 mg/3 mL Neb INHALATION (10:50)
[2023-01-25 10:55] VITALS: PULSE 90
[2023-07-05 13:31] LABS: Miscellaneous Test See Scanned Lab Rpt
[2023-07-18 15:07] LABS: MTB Complex Respiratory PCR NOT DETECTED; MTB Source SPUTUM
== END 2023-01-25 10:18 | disposition home or self-care (01) ==
LOC: RT 10:20
PROVIDERS: PCP Nurse Practitioner; Visit Provider Internal Medicine Pulmonary Disease
DX: R91.1 Solitary pulmonary nodule (principal); A31.9 Mycobacterial infection, unspecified; J44.9 Chronic obstructive pulmonary disease, unspecified; Z87.891 Personal history of nicotine dependence; Z99.81 Dependence on supplemental oxygen
CPT/HCPCS: 87556; 94060; 94618; 94726; 94729; 99214; J7613

== ENCOUNTER 2023-02-01 08:17 | Outpatient (CLI) | payer MEDICARE, SELFPAY ==
--- NOTE | 2023-02-01 08:30 | FL_ITS ---
WS: [id number] EXAMINATION: FL barium swallow [id number] REASON FOR EXAM: Dysphagia choking on food in the throat ORDER DATE: 02/01/2023 8:37 AM COMPARISON: None available. TECHNIQUE: The patient was able to swallow thick barium for the esophagram. Cine-fluoroscopy with rapid sequence imaging was obtained while the patient swallowed. The patient was also placed supine and in various recumbent positions during the exam. FINDINGS: There was a normal mucosal fold pattern in the upper esophagus. There is no sign of diverticula, webs or stricture. There was a mild delay in contrast emptying from the esophagus into the stomach. Dysmo tility as a result of tertiary contraction waves delayed esophageal emptying. A hiatal hernia was not seen on this study. With provocative maneuvers no gastroesophageal reflux was initiated. The distal esophageal mucosal pattern is unremarkable. FL/FL barium swallow [id number] IMPRESSION: 1. PRESBYESOPHAGUS, MILD CONTRAST RETENTION DUE TO DELAYED EMPTYING. 2. NO GASTROESOPHAGEAL REFLUX. FLUOROSCOPY TIME: 1min [id number] # OF SPOT FILMS: 4
== END 2023-02-01 08:18 | disposition home or self-care (01) ==
LOC: RAD 08:26
PROVIDERS: PCP Nurse Practitioner; Visit Provider Internal Medicine Pulmonary Disease
DX: R13.10 Dysphagia, unspecified (principal)
CPT/HCPCS: 74220

== ENCOUNTER 2023-03-30 12:50 | Outpatient (RCR) | payer MEDICARE, SELFPAY | END 2023-04-20 23:59 | disposition home or self-care (01) | LOC: SST 12:50 | PROVIDERS: Visit Provider Internal Medicine Pulmonary Disease | DX: R13.14 Dysphagia, pharyngoesophageal phase (principal) | CPT/HCPCS: 92610 ==

== ENCOUNTER → 2023-04-04 15:40 | Outpatient (BNVA) | payer MEDICARE, SELFPAY | PROVIDERS: Visit Provider Internal Medicine Pulmonary Disease | DX: A31.9 Mycobacterial infection, unspecified (principal); J18.9 Pneumonia, unspecified organism; R91.1 Solitary pulmonary nodule; J44.9 Chronic obstructive pulmonary disease, unspecified; Z87.891 Personal history of nicotine dependence; Z99.81 Dependence on supplemental oxygen | CPT/HCPCS: 87070; 87077; 87186; 87205; 99214 ==

== ENCOUNTER 2023-05-15 09:52 | Outpatient (CLI) | payer MEDICARE, SELFPAY ==
--- NOTE | 2023-05-15 10:00 | CT_ITS ---
WS: [id number] CT chest wo con [id number] HISTORY: f/u TECHNIQUE: Axial imaging performed through the thorax. Coronal and sagittal reformats are submitted. All CT scans at [facility] use at least one of these dose optimization techniques: automated exposure control; mA and/or kV adjustment per patient size (includes targeted exams where dose is mat ched to clinical indication); or iterative reconstruction. CONTRAST: None DLP: 185.42 mGy.cm COMPARISON: 11/02/2022, 01/11/2023 Lungs and central airway: Lungs are hyperinflated. Biapical pulmonary fibrosis and scarring, greatest on the RIGHT. Reidentified are bilateral patchy opacifications with areas of groundglass and tree-in -bud airspace disease. Subsolid nodule measuring 15 x 19 mm in the RIGHT upper lobe. Similar in size to the prior study. The nodular component appears less consolidated. Moderate improvement in the irre gular opacification previously described in the RIGHT middle lobe. Pleura: Normal. No pleural effusion. Heart and pericardium: Normal size heart with no pericardial effusion. Mediastinum and royce: No adenopathy appreciated on this exam unenhanced exam. Vessels: Mild atherosclerosis aorta. No aneurysm. Normal size pulmonary artery. Chest wall and lower neck: No soft tissue masses. Upper abdomen: Suprarenal aortic calcification. No adrenal mass. Osseous structures: Mild increase in the thoracic kyphosis. CT/CT chest wo con [id number] IMPRESSION: 1. Moderate improvement RIGHT middle lobe irregular opacification. 2. Biapical pleural parenchymal scarring at the apices unchanged. 3. Additional bilateral irregular opacifications in the upper lobes are essent ially stable. Subsolid nodule in the RIGHT upper lobe may have slightly decreas ed in overall density. The RIGHT upper lobe subsolid nodule needs to have angela nued serial evaluation for possible malignancy. Recommend follow-up chest CT in 6 months. 4. Severe chronic emphysema.
[2023-05-19 03:24] LABS: MTB Complex Respiratory PCR NOT DETECTED; MTB Source SPUTUM
== END 2023-05-15 09:53 | disposition home or self-care (01) ==
LOC: RAD 09:54
PROVIDERS: Visit Provider Internal Medicine Pulmonary Disease
DX: R91.1 Solitary pulmonary nodule (principal); A31.9 Mycobacterial infection, unspecified; J43.9 Emphysema, unspecified
CPT/HCPCS: 71250; 87556

== ENCOUNTER 2023-06-18 09:32 | Outpatient (CLI) | payer MEDICARE, SELFPAY ==
--- NOTE | 2023-06-18 09:53 | FL_ITS ---
WS: [id number] Exam: FL barium swallow modifd [id number] Date/Time of Exam: 06/18/2023 9:53 AM Reason For Exam: Pharyngoesoph. dysphagia Fluoroscopy time: 2min [id number] minutes # of spot films: Modified barium swallow was performed in conjunction with the speech therapy service. Swallowing function at the level of the oropharynx was normal. No aspiration or penetration was obser radha. The patient tolerated all consistencies of barium mixture foodstuffs without complication. The p atient swallowed a barium tablet without incident. IMPRESSION: 1. Unremarkable modified barium swallow. No sign of aspiration or penetration into the laryngeal inle t.
== END 2023-06-18 09:33 | disposition home or self-care (01) ==
PROVIDERS: Visit Provider Internal Medicine Pulmonary Disease
DX: R13.14 Dysphagia, pharyngoesophageal phase (principal)
CPT/HCPCS: 74230; 92611

== ENCOUNTER 2023-07-18 11:51 | Emergency (ER) | payer MEDICARE, SELFPAY ==
[2023-07-18 11:55] VITALS: BP 161/83; PULSE 95; RESP 18; TEMP 36.6; O2SAT 94; BMI 20.1
[2023-07-18 12:32] VITALS: BP 131/93; PULSE 91; O2SAT 93
--- NOTE | 2023-07-18 12:39 | W.ED.SOB ---
HPI - SOB/Dyspnea General: Chief Complaint: Shortness of Breath/Dyspnea Stated Complaint: cant breath well Time Seen by Provider: 07/18/23 12:20 Source: patient Mode of arrival: ambulatory Limitations: no limitations History of Present Illness: HPI Narrative: Patient is a 73-year-old female with a history of COPD here for complaints of shortness of breath and chest congestion. Patient states she is normally on 3 L of oxygen. She states that she occasionally will remove her oxygen to do things around the home and outside but states over the past several weeks she has had to wear it continuously. She is not having any chest pain. He denies any lower extremity swelling, calf pain, orthopnea, or PND. She has no history of congestive heart failure. She is reporting subjective fever stating that occasionally she feels sweaty. Patient states her geological sample tester is Dr. Detar. HERRMANN elicited complaint: shortness of breath Pertinent past history: COPD Onset (ago): week(s) Timing: constant Severity: moderate Exacerbating factors: exertion Relieving factors: oxygen and rest Known history of: COPD Associated symptoms: Reports chest congestion and fever(s) (subjective); Deny abdominal pain, chest pain, dizziness, extremity pain, hemoptysis, lightheadedness, nausea, palpitations, syncope or vomiting Treatment prior to arrival: oxygen Related Data: Home oxygen amount: 3 liters Review of Systems Const: Reports: fever(s) (subjective); Denies: chills, body aches, fatigue or malaise Card: Reports: dyspnea on exertion; Denies: chest pain, palpitations, irregular heart rhythm, edema, swelling of feet/ankles, lightheadedness, syncope, pre-syncope, leg pain with exertion or acrocyanosis Resp: Reports: dyspnea, non-productive cough and chest congestion; Denies: wheezing, stridor, pain on inspiration or hemoptysis GI: Denies: abdominal pain, nausea, vomiting or diarrhea Musc: Denies: neck pain, back pain, extremity pain or joint pain Skin/Breast: Denies: rash Neuro: Denies: headache(s) or dizziness PFS ED PFSH: Medical History COPD (chronic obstructive pulmonary disease) COVID-19 Diverticulitis Hypertension Ischemic colitis Lower GI bleed Osteoarthritis Rheumatoid arthritis Type 2 diabetes mellitus Ulcerative colitis Surgical History History of colonoscopy History of partial hysterectomy S/P tonsillectomy Family History Other CAD (coronary artery disease) Denies family history of Diabetes Cancer Social History Smoking and tobacco status: former smoker Quit status (tobacco): has quit using tobacco Year quit tobacco: September 2022 Former quit date comment: 1ppd x 46 years Alcohol intake: never Substance/Drug Use: never Caregiver/support person: No Lives independently: Yes Household members: none Housing: House Pets and animals: Yes Physical Exam Const: COMMON NORMALS: patient oriented x3, no limitations, alert and well nourished GENERAL APPEARANCE: cooperative NUTRITIONAL APPEARANCE: thin ORIENTATION/CONSCIOUSNESS: Yes awake, Yes oriented to person, Yes oriented to place and Yes oriented to time HENMT: COMMON NORMALS: normocephalic and atraumatic HEAD & SCALP: normal to inspection, normocephalic and atraumatic Neck/C-Spine: COMMON NORMALS: no JVD Chest: COMMONS NORMALS: normal inspection of the chest and normal palpation of entire chest wall Resp: COMMON NORMALS: normal respiratory effort and clear to auscultation bilaterally AUSCULTATION: clear to auscultation bilaterally Cardio: COMMON NORMALS: no JVD, regular rate and regular rhythm RATE: regular rate RHYTHM: regular rhythm Extremity: COMMON NORMALS: no clubbing, cyanosis or edema, no calf tenderness and no pedal edema Neuro: COMMON NORMALS: patient oriented x3 SENSORIUM/ORIENTATION: Yes alert, Yes oriented to person, Yes oriented to place and Yes oriented to time Skin: COMMON NORMALS: no rashes or lesions noted GENERAL SKIN EXAM: no rashes or lesions noted Course Vital Signs: Vital signs: Vital Signs Temperature 97.9 F 07/18/23 11:55 Pulse Rate 90 07/18/23 14:27 Respiratory Rate 18 07/18/23 11:55 Blood Pressure 163/100 07/18/23 14:27 Pulse Oximetry 94 07/18/23 14:27 Oxygen Delivery Me thod Nasal Cannula 07/18/23 14:27 Oxygen Flow Rate 3 07/18/23 14:27 MDM - SOB/Dyspnea Medical Decision Making Patient is satting well on her normal 3 L. Blood work overall is unremarkable. Her CXR is normal. COVID PCR is pending. At this time we will treat her for a COPD exacerbation with Levaquin and Prednisone taper. Recommend she follow-up with her geological sample tester or primary care provider within the week for re-evaluation. Return ED precautions given. Lab Data 07/18/23 12:42 07/18/23 13:30 Labs/Radiology: Radiology Impressions Chest X-Ray 07/18/23 13:57 IMPRESSION: No acute findings. Laboratory Results WBC 7.36 10^3/uL (3.29-11.43) 07/18/23 12:42 RBC 4.80 10^6/uL (3.85-5.65) 07/18/23 12:42 Hgb 13.70 g/dL (11.27-16.99) 07/18/23 12:42 Hct 43.4 % (36-47) 07/18/23 12:42 MCV 90.4 fl (85-98) 07/18/23 12:42 MCH 28.5 pg (27-33) 07/18/23 12:42 MCHC 31.6 g/dL (30-55) 07/18/23 12:42 RDW 13.5 % (12.1-15.1) 07/18/23 12:42 Plt Count 259 10^3/cmm (157-399) 07/18/23 12:42 MPV 10.5 fL (7.4-10.4) H 07/18/23 12:42 Neut % (Auto) 69.5 % 07/18/23 12:42 Lymph % (Auto) 20.0 % 07/18/23 12:42 Ralls % (Auto) 6.8 % 07/18/23 12:42 Eos % (Auto) 2.6 % 07/18/23 12:42 Baso % (Auto) 0.8 % 07/18/23 12:42 Neut # (Auto) 5.12 10^3/uL (1.8-7.7) 07/18/23 12:42 Lymph # (Auto) 1.5 10^3/uL (0.8-4.8) 07/18/23 12:42 Ralls # (Auto) 0.5 10^3/uL (0.2-0.9) 07/18/23 12:42 Eos # (Auto) 0.2 10^3/uL (0.0-0.8) 07/18/23 12:42 Baso # (Auto) 0.1 10^3/uL (0.0-0.1) 07/18/23 12:42 Nucleated RBC % (auto) 0 % 07/18/23 12:42 Nucleated RBCs # 0.0 /100WBC 07/18/23 12:42 Sodium 138 mmol/L (136-145) 07/18/23 13:30 Potassium 3.9 mmol/L (3.5-5.1) 07/18/23 13:30 Chloride 98 mmol/L (98-107) 07/18/23 13:30 Carbon Dioxide 27 mmol/L (22-29) 07/18/23 13:30 Anion Gap 16.9 (5-19) 07/18/23 13:30 BUN 18 mg/dL (8-23) 07/18/23 13:30 Creatinine 0.5 mg/dL (0.5-0.9) 07/18/23 13:30 GFR Calculation Not Reportable 07/18/23 13:30 Glucose 100 mg/dL (65-115) 07/18/23 13:30 Calculated Osmolality 288 mOsm/kg (285-295) 07/18/23 13:30 Calcium 9.2 mg/dL (8.5-10.5) 07/18/23 13:30 Total Bilirubin 0.3 mg/dL (0.15-1.2) 07/18/23 13:30 AST 15 U/L (0-32) 07/18/23 13:30 ALT 11 U/L (0-33) 07/18/23 13:30 Alkaline Phosphatase 97 U/L (35-105) 07/18/23 13:30 Troponin T Baseline < 6 ng/L (0-10) 07/18/23 13:30 NT-Pro-B Natriuret Pep 143 pg/mL (0-125) H 07/18/23 13:30 Total Protein 7.0 g/dL (6.6-8.7) 07/18/23 13:30 Albumin 4.1 g/dL (3.5-5.2) 07/18/23 13:30 Globulin 2.9 g/dL (1.3-4.6) 07/18/23 13:30 Procalcitonin 0.05 ng/mL (0-0.5) 07/18/23 13:30 All radiology interpretation(s) finalized by discharge Discharge Plan Discharge Patient Disposition: Home Clinical Impression: Acute exacerbation of chronic obstructive pulmonary disease Condition: Stable Prescriptions: New levofloxacin 500 mg tablet 500 mg PO DAILY 7 Days Qty: 7 0RF prednisone 10 mg tablet 10 mg PO DAILY 10 Days Qty: 27 0RF Rx Instructions: 6 tabs on days 1-2, 5 tabs on days 3, 4 tabs on day 4, 3 tabs on day 5, 2 tabs on day 6, 1 tab on day 7 No Action budesonide-formoterol [Symbicort] 80-4.5 mcg/actuation HFA aerosol inhaler 2 puff inhalation BID Qty: 10.2 6RF albuterol sulfate 90 mcg/actuation HFA aerosol inhaler 2 puff INHALATION Q4H PRN (Reason: Shortness Of Breath) ipratropium-albuterol 0.5 mg-3 mg(2.5 mg base)/3 mL solution for nebulization 3 ml inhalation Q6H PRN (Reason: shortness of breath or wheezing) Qty: 180 0RF Discharge Orders: Discharge ED (Routine); Ordered 07/18/23 Ordered By: Jennifer Sequeira Patient Instructions: COPD (Chronic Obstructive Pulmonary Disease) (DC) Activity Restrictions/Additional Instructions: As we discussed I would like you to follow-up with your geological sample tester or your primary care provider within the week for re-evaluation. You may return to the emergency department for worsening shortness of breath, chest pain, difficulty breathing, fevers, generally feeling worse or unwell, or any other concerns you may have. I hope you begin to feel better soon. Coding Level of Care Code ED Clinical Research Director for Louise Montero
--- NOTE | 2023-07-18 12:47 | ECG_ITS ---
[facility] Test Date: 2023-07-18 Pat Name: Tammy Johns Department: Room: Gender: Female [employer] Helper: : 1950 Requested By: Jennifer Sequeira Order Number: [id number] Clarence MD: Rose Mary Carvajal M.D. Measurements Intervals [place] Rate: 86 P: 71 IA: 148 QRS: 74 QRSD: 76 T: 73 QT: 333 QTc: 398 Interpretive Statements SINUS RHYTHM POSSIBLE LEFT ATRIAL ENLARGEMENT [-0.1mV P-WAVE IN V1/V2] SEPTAL MYOCARDIAL INFARCTION , OF INDETERMINATE AGE [40+ ms Q WAVE IN V1/V2] Compared to ECG 11/28/2022 16:57:51 No significant changes Electronically Signed On 07-18-2023 20:50:40 CDT by Rose Mary Carvajal M.D. [email or web address]
--- NOTE | 2023-07-18 12:58 | PC.PHAR ---
pt states she takes care of her own medications-pt states she no longer uses the advair ext shows last filled 05/25/23 30d/s-pt states only using the inhalers entered
[2023-07-18 13:04] LABS: Basophils # 0.1 10^3/uL (0.0-0.1); Basophils % 0.8 %; Eosinophils # 0.2 10^3/uL (0.0-0.8); Eosinophils % 2.6 %; Hematocrit 43.4 % (36-47); Lymphocytes # 1.5 10^3/uL (0.8-4.8); Mean Corpuscular HGB Conc 31.6 g/dL (30-55); Mean Corpuscular Hemoglobin 28.5 pg (27-33); Mean Corpuscular Volume 90.4 fl (85-98); Mean Platelet Volume 10.5 fL (7.4-10.4); Monocytes # 0.5 10^3/uL (0.2-0.9); Monocytes % 6.8 %; Neutrophils # 5.12 10^3/uL (1.8-7.7); Neutrophils % 69.5 %; Nucleated Red Blood Cells % 0 %; Platelet Count 259 10^3/cmm (157-399); Red Cell Distribution Width 13.5 % (12.1-15.1); White Blood Count 7.36 10^3/uL (3.29-11.43)
--- NOTE | 2023-07-18 13:57 | XRR_ITS ---
PROCEDURE INFORMATION: Exam: XR Chest Exam date and time: 07/18/2023 2:00 PM Age: 73 years old Clinical indication: Shortness of breath; Additional info: SOB TECHNIQUE: Imaging protocol: Radiologic exam of the chest. Views: 1 view. COMPARISON: 1. CT chest wo con [id number] 05/15/2023 10:34 AM 2. CR XR chest 1V portable [id number] 11/28/2022 4:07 PM FINDINGS: Lungs: Pulmonary hyperinflation. Stable appearance of biapical pleural-parenchymal scarring. Upper lobe nodularity better evaluated on comparison chest CT. Linear scarring versus atelectasis at the left lung base. No consolidation. Pleural spaces: No pleural effusion or pneumothorax. Heart/Mediastinum: Unremarkable. No cardiomegaly. Vasculature: Aortic arch atherosclerotic calcification. Bones/joints: Levoconvex thoracolumbar spine curvature. Mild degenerative changes along the spine. XR/XR chest 1V portable [id number] IMPRESSION: No acute findings.
[2023-07-18 13:58] LABS: Troponin(5th) Baseline < 6 ng/L (0-10)
[2023-07-18 14:05] LABS: NT Pro B Type Natriuretic Pept 143 pg/mL (0-125); Procalcitonin 0.05 ng/mL (0-0.5)
[2023-07-18 14:16] LABS: Alanine Aminotransferase 11 U/L (0-33); Albumin Level 4.1 g/dL (3.5-5.2); Alkaline Phosphatase 97 U/L (35-105); Anion Gap 16.9 (5-19); Aspartate Amino Transferase 15 U/L (0-32); Blood Urea Nitrogen 18 mg/dL (8-23); Calcium 9.2 mg/dL (8.5-10.5); Carbon Dioxide 27 mmol/L (22-29); Chloride 98 mmol/L (98-107); Globulin 2.9 g/dL (1.3-4.6); Glucose 100 mg/dL (65-115); Osmolality Calculated 288 mOsm/kg (285-295); Potassium 3.9 mmol/L (3.5-5.1); Sodium 138 mmol/L (136-145); Total Bilirubin 0.3 mg/dL (0.15-1.2)
[2023-07-18 14:27] VITALS: BP 163/100; PULSE 90; O2SAT 94
[2023-07-18 15:05] VITALS: BP 163/100; PULSE 95; O2SAT 91
[2023-07-18 15:52] LABS: Adenovirus Not Detected (NOT DETECT); Chlamydia Pneumoniae Not Detected (NOT DETECT); Coronavirus 229E,HKU1,NL63,OC4 Not Detected (NOT DETECT); Human Metapneumovirus Not Detected (NOT DETECT); Human Rhinovirus/Enterovirus Not Detected (NOT DETECT); Influenza A Not Detected (NOT DETECT); Influenza A H1 Not Detected (NOT DETECT); Influenza A H1-2009 Not Detected (NOT DETECT); Influenza A H3 Not Detected (NOT DETECT); Influenza B Not Detected (NOT DETECT); Mycoplasma Pneumoniae Not Detected (NOT DETECT); Parainfluenza Virus Type 1 Not Detected (NOT DETECT); Parainfluenza Virus Type 2 Not Detected (NOT DETECT); Parainfluenza Virus Type 3 Not Detected (NOT DETECT); Parainfluenza Virus Type 4 Not Detected (NOT DETECT); Respiratory Syncytial Virus A Not Detected (NOT DETECT); Respiratory Syncytial Virus B Not Detected (NOT DETECT); SARS-COV-2 Not Detected (NOT DETECT)
== END 2023-07-18 15:07 | disposition home or self-care (01) ==
PROVIDERS: Emergency Provider Physician Assistant
DX: J44.1 Chronic obstructive pulmonary disease with (acute) exacerbation (principal); I10 Essential (primary) hypertension; E11.9 Type 2 diabetes mellitus without complications; Z87.891 Personal history of nicotine dependence; Z20.822 Contact with and (suspected) exposure to COVID-19
CPT/HCPCS: 36415; 71045; 80053; 83880; 84145; 84484; 85025; 87635; 93005; 99285

== ENCOUNTER 2023-11-01 11:35 | Outpatient (CLI) | payer MEDICARE, SELFPAY ==
--- NOTE | 2023-11-01 12:00 | CT_ITS ---
WS: [id number] CT chest wo con [id number] HISTORY: cancer screening TECHNIQUE: Axial imaging performed through the thorax. Coronal and sagittal reformats are submitted. All CT scans at [facility] use at least one of these dose optimization techniques: automated exposure control; mA and/or kV adjustment per patient size (includes targeted exams where dose is mat ched to clinical indication); or iterative reconstruction. CONTRAST: Omnipaque 350; 100 mL IV. DLP: 233.36 mGy.cm COMPARISON: 01/11/2023 and 05/15/2023 Lungs and central airway: Chronic bullous emphysema. In the interval there are new subtle changes wit hin both upper lung fierro. The previously described subsolid nodule in the RIGHT upper lobe has only minimally increased in size but there is asymmetric wall thickening and nodularity now present. This entire subsolid nodule measures 1.7 x 1.6 cm and is becoming more suspicious over time. There is an additional groundglass opacification in the LEFT upper lobe measuring 1.8 x 1.0 cm which also appears to slightly more prominent. There is a new 0.4 cm nodule superior segment LEFT lower lobe. There is an additional subpleural irregular opacification along the medial superior segment LEFT upper lobe. T he biapical pleural-parenchymal thickening is stable. There are a few additional scattered very nonsp ecific nodules throughout both lungs. Pleura: Normal. No pleural effusion. Heart and pericardium: Normal size heart with no pericardial effusion. Mediastinum and royce: No mediastinum or hilar adenopathy. Vessels: Moderate atherosclerosis aorta. Dilated pulmonary artery. Chest wall and lower neck: No soft tissue masses. Upper abdomen: Moderate size hiatal hernia. Osseous structures: Increase in thoracic kyphosis. IMPRESSION: 1. Previously described RIGHT upper lobe subsolid nodule has slowly increased in size as compared to 01/11/2023. There is now asymmetric wall thickening which is suspicious for neoplasm. 2. The groundglass opacification in the LEFT upper lobe appears slightly more prominent and there ar e new subcentimeter nodules in the superior segment LEFT lower lobe. 3. Consider further evaluation by PET/CT imaging at this time due to the change in pulmonary status . 4. Severe bullous emphysema. 5. No adenopathy on this unenhanced exam. 6. Pulmonary hypertension and mild atherosclerosis aorta.
== END 2023-11-01 11:36 | disposition home or self-care (01) ==
LOC: RAD 11:37
PROVIDERS: Visit Provider Internal Medicine Pulmonary Disease
DX: R91.1 Solitary pulmonary nodule (principal); J44.9 Chronic obstructive pulmonary disease, unspecified; J43.8 Other emphysema; I27.20 Pulmonary hypertension, unspecified
CPT/HCPCS: 71250

== ENCOUNTER 2023-12-25 10:18 | Outpatient (CLI) | payer MEDICARE, SELFPAY ==
--- NOTE | 2023-12-25 11:00 | PETR_ITS ---
PROCEDURE INFORMATION: Exam: PET/CT Skull Base to Mid-thigh Exam date and time: 12/25/2023 11:58 AM Age: 73 years old Clinical indication: Abnormal findings; 1. Previously described right upper lobe subsolid nodule has slowly increased in size as compared. To 01/11/2023. There is now asymmetric wall thickening which is suspicious for neoplasm. 2. The groundglass opacification in the left upper lobe appears slightly more prominent and there. Are new subcentimeter nodules in the superior segment left lower lobe. 3. Consider further evaluation by pet/ct imaging at this time due to the change in pulmonary. Status. ; Additional info: Abnormal CT LABS AND CLINICAL REPORTS: Glucose: 109 mg/dl Treatment strategy for malignancy (PET staging): Initial Staging (PI) TECHNIQUE: Imaging protocol: Following at least four-hour fasting and following the injection of radiopharmaceutical, low dose CT images were obtained. Then, PET images were obtained. Attenuation corrected images were constructed using the CT scan. Fused images of PET and CT were reviewed. The standardized uptake values (SUV) reported below are maximum values within a region of interest, expressed in gm/ml. Exam includes orbital meatal line to mid-thigh. Radiopharmaceutical: 10.24 mCi F-18 FDG (Fluorodeoxyglucose), IV. Time of imaging post radiopharmaceutical administration: 1 hour COMPARISON: 1. CT chest from 11/01/[address] chest from 11/02/2022 FINDINGS: Brain: Visualized brain has normal physiologic uptake. Pharynx: No abnormal uptake. Larynx: No abnormal uptake. Lungs, pleura and trachea: Increased FDG uptake is seen associated with a 1.4 cm left upper lobe ground-glass nodule with SUV max 3.5 (image 85). This appears to be new from recent CT dated 11/01/2023. FDG uptake below background is seen associated with the 1.3 cm right upper lobe pulmonary nodule (SUV max 1.1). Similar areas of scarring at the bilateral lung apices. No FDG uptake is seen associated with the ground-glass nodule more superiorly in the left upper lobe. Calcified granulomas in the left lower lobe. Heart: Normal physiologic uptake. Mediastinal space: No abnormal uptake. Liver: No abnormal uptake. Gallbladder and bile ducts: No abnormal uptake. Pancreas: No abnormal uptake. Spleen: No abnormal uptake. Adrenal glands: No abnormal uptake. Kidneys and ureters: Normal physiologic uptake. Stomach and bowel: Small amount of focal uptake is seen at the gastroesophageal junction with SUV max 2.7, favored to be inflammatory. Vasculature: No abnormal uptake. Lymph nodes: No abnormal uptake. No lymphadenopathy in the head, neck, chest, abdomen, pelvis, and extremities. Bones/joints: No abnormal uptake in the visualized axial and appendicular skeleton. Soft tissues: No abnormal uptake in the visualized head, neck, chest, abdomen, pelvis, and extremities. PET/PET [facility] INITIAL [id number] IMPRESSION: 1. Increased FDG uptake is seen associated with a 1.4 cm left upper lobe ground-glass nodule with SUV max 3.5 (image 85). Given that this appears to be new from recent CT dated 11/01/2023, this may be infectious or inflammatory, though neoplastic disease is not entirely excluded. Recommend attention on follow-up. 2. Other pulmonary nodules have FDG uptake below background.
== END 2023-12-25 10:19 | disposition home or self-care (01) ==
LOC: RAD 10:18
PROVIDERS: Visit Provider Internal Medicine Pulmonary Disease
DX: R91.1 Solitary pulmonary nodule (principal); R91.8 Other nonspecific abnormal finding of lung field
CPT/HCPCS: 78815; A9552

== ENCOUNTER 2024-02-25 14:09 | Outpatient (CLI) | payer MEDICARE, SELFPAY ==
--- NOTE | 2024-02-25 14:30 | CT_ITS ---
WS: [id number] CT chest wo con [id number] HISTORY: 2 month f/u post PET/CT TECHNIQUE: Axial imaging performed through the thorax. Coronal and sagittal reformats are submitted. All CT scans at [facility] use at least one of these dose optimization techniques: automated exposure control; mA and/or kV adjustment per patient size (includes targeted exams where dose is mat ched to clinical indication); or iterative reconstruction. CONTRAST: None DLP: 214.89 mGy.cm COMPARISON: CT 05/15/2023 and 11/01/2023, PET/CT 12/25/2023 Lungs and central airway: Severe chronic emphysema. The recently described PET/CT positive groundglas s attenuation in the anterior LEFT upper lobe has resolved. The additional opacifications and nodules were negative on the recent PET/CT. The asymmetric cavitary lesion in the RIGHT upper lobe was not F DG avid. Additional scattered areas of groundglass attenuation. Several new subcentimeter nodules in the RIGHT lower lobe. 3 new nodules are identified measuring up to 9 mm. Pleura: Normal. No pleural effusion. Heart and pericardium: Normal size heart with no pericardial effusion. Mediastinum and royce: No adenopathy identified. The hilar regions are very difficult to evaluate with out IV contrast. Vessels: Marked atherosclerosis aorta. Chest wall and lower neck: No soft tissue masses. Upper abdomen: Suprarenal aortic calcification. No adrenal mass identified. Osseous structures: Increase in thoracic kyphosis. Osteopenia. CT/CT chest wo con [id number] IMPRESSION: 1. PET/CT positive groundglass opacification in the LEFT upper lobe has resolv ed since 12/25/2023. 2. The additional previously described pulmonary opacifications and nodules we re FDG negative. 3. There are 3 new subcentimeter nodules in the RIGHT lower lobe. These were n ot present on the PET/CT of 12/25/2023. Due to the recent appearance these may be postinflammatory. Recommend follow-up chest CT in 3 months. 4. Severe chronic emphysema.
== END 2024-02-25 14:10 | disposition home or self-care (01) ==
LOC: RAD 14:09
PROVIDERS: Visit Provider Internal Medicine Pulmonary Disease
DX: R91.1 Solitary pulmonary nodule (principal); Q33.8 Other congenital malformations of lung; R91.8 Other nonspecific abnormal finding of lung field; J44.89 Other specified chronic obstructive pulmonary disease; M85.88 Other specified disorders of bone density and structure, other site; J43.9 Emphysema, unspecified
CPT/HCPCS: 71250

== ENCOUNTER 2025-05-07 13:40 | Outpatient (CLI) | payer MEDICARE, SELFPAY ==
--- NOTE | 2025-05-07 13:44 | XR_ITS ---
WS: [id number] SCREENING DEXA SCAN [employer] CLINICAL INFORMATION: POST MENOPAUSAL COMPARISON: None. FINDINGS: The L1-L4 bone mineral density measures 0.838 g/cm2. This corresponds to a T score score of -2.8 and Z score of -1.1. Left femoral neck bone mineral density measures 0.717 g/cm2. This corresponds to a T score of -2.3 and Z score of -0.6. Right femoral neck bone mineral density measures 0.695 g/cm2. This corresponds to a T score -2.5of and Z score of -0.8. Mean femoral neck bone mineral density measures 0.706 g/cm2. This corresponds to a T score of -2.4 and Z score of -0.7. XR/XR DEXA axial skeleton* [id number] IMPRESSION: Osteoporosis lumbar spine. Osteopenia femoral necks approaching osteoporosis Patient's FRAX calculated 10 year probability for major osteoporotic fracture i s 20.3% and osteoporotic hip fracture is 6.8%.
== END 2025-05-07 13:41 | disposition home or self-care (01) ==
LOC: RAD 13:41
PROVIDERS: PCP Nurse Practitioner; Visit Provider Nurse Practitioner
DX: Z13.820 Encounter for screening for osteoporosis (principal); Z78.0 Asymptomatic menopausal state; M81.0 Age-related osteoporosis without current pathological fracture
CPT/HCPCS: 77080

== ENCOUNTER 2025-05-28 13:08 | Emergency (ER) | payer MEDICARE, SELFPAY ==
[2025-05-28] VITALS (30 sets, daily range): BP systolic 139–173; BP diastolic 70–104; PULSE 83–103; RESP 17–40; TEMP 36.9; O2SAT 92–99; BMI 21.6
--- NOTE | 2025-05-28 13:25 | XR_ITS ---
WS: [id number] PORTABLE CHEST HISTORY: Weakness COMPARISON: Chest CT 02/25/2024, radiograph 07/18/2023 Marked pulmonary hyperexpansion. Curvilinear asymmetry at the RIGHT lung base is new. Advanced emphysematous changes with biapical pleural thickening. No pleural effusion or pneumothorax. Cardiac size: Normal. Mediastinum/Aorta: Mild atherosclerosis aorta. Osteopenia. XR/XR chest 1V portable [id number] IMPRESSION: 1. Curvilinear opacification at the RIGHT lung base. New compared to most rece nt exams. Focal area of pneumonitis or developing pneumonia. Recommend follow-u p chest radiograph after treatment. 2. Advanced emphysema.
--- OUTSIDE RECORDS SUMMARY | 2025-05-28 13:25 | XMS_ITS | Encounter Summary ---
Author Organization [facility] Address [address] [place] [address] Care Team Providers Care Leathersmith Name Role Phone Unavailable Primary Care Provider Unavailabl e Reason for Referral * Outpatient Services (Routine) - Closed Specialty Diagnoses / Procedures Referred By Contac t Referred To Contact Diagnoses Localized superficial swelling, mass, or lump Procedures US PELVIS LIMITED NON OB Nidhi Jessica APN [address] [place] [phone] Phone: tel: fax: [facility] Pre-Registration [place] CALL TO MAKE APPOINTMENT ONLY [address] [place] [address] Phone: tel: fax: Referral ID Status Reason Start Date Expiration Date V isits Requested Visits Authorized [id number] Closed [facility] TO SCHEDULE ([facility]) 04/21/2014 05/22/2015 1 1 Encounter Details Date Type Department Care Team (Latest Contact Info) Description 04/21/2014 Ancillary Orders [facility] Pre-Registration [place] CALL TO MAKE APPOINTMENT ONLY [address] [place] [address] Nidhi Jessica APN [address] [place] [phone] Localized superficial swelling, mass, or lump (Primary Dx) Social History Tobacco Use Types Packs/Day Years Used Date Smoking Tobacco: Never Assessed Comments Unknown Sex and Gender Information Value Date Recorded Sex Assigned at Not on file 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 Exam: US PELVIS LIMITED NON OB Date/Time of Exam: Apr 27, 2014 12:54:40 PM Reason For Exam: Localized superficial swelling, mass, or lump. Findings: Within the right inguinal region is a structure which is seen to be mobile with an appearance consistent with a fat filled inguinal hernia. From the images submitted it is not clear if a loop of bowel is extending into the hernia during the course of the examination. The extension into the hernia range from between 5.7 cm to 3.2 cm during the course of the study. Zafar - uploaded from [employer] - Narrative Procedure Note Olya Araujo MD - 04/27/2014 IMPRESSION IMPRESSION: See report below. Exam: US PELVIS LIMITED NON OB Date/Time of Exam: Apr 27, 2014 12:54:40 PM Reason For Exam: Localized superficial swelling, mass, or lump. Findings: Within the right inguinal region is a structure which is seen to be mobile with an appearance consistent with a fat filled inguinal hernia. From the images submitted it is not clear if a loop of bowel is extending into the hernia during the course of the examination. The extension into the hernia range from between 5.7 cm to 3.2 cm during the course of the study. Zafar - uploaded from [employer] - us External Provider [facility] ORDERABLES Final Resu lt documented in this encounter Visit Diagnoses Diagnosis Localized superficial swelling, mass, or lump- Primary Localized superficial swelling, mass, or lump documented in this encounter
--- OUTSIDE RECORDS SUMMARY | 2025-05-28 13:25 | XMS_ITS | Clinical Summary ---
Author Organization [facility] Address [address] [facility] Attn: Epic Prelude ADT CECELIA REYES [address] Care Team Providers Care Melting Supervisor Name Role Phone Unavailable Primary Care Provider Unavailabl e Allergies Active Allergy Reactions Criticality Noted Date Comments Aspirin Rash,Other (See Comments) Low 05/04/2014 Fluoxetine Other (See Comments) High 05/04/2014 Suicidal tendencies Ibuprofen Other (See Comments) 05/04/2014 doesn't work Influenza Virus Vaccine Tv Split 2010- (60 Yr +) Unknown 05/06/2014 ALLERGIC TO EGGS L-Desoxyephedrine Palpitations Low 05/04/2014 Penicillins Rash Low 05/04/2014 Prednisone Palpitations,Other (See Comments) Low 05/04/2014 Sulfa (Sulfonamide Antibiotics) Shortness of Breath/Wheezing,Rash High 05/04/2014 Unclassified Drug Palpitations Low 05/04/2014 Active Problems Problem Noted Date Diagnosed Date Protein-calorie malnutrition, moderate 6 Cigarette dependence 05/21/2016 Colitis 05/21/2016 Ulcerative colitis 05/21/2016 Acute colitis Ulcerative pancolitis with complication Acute ischemic colitis Resolved Problems Problem Noted Date Diagnosed Date Resolved Date Acute gastrointestinal hemorrhage 05/21/2016 05/24/2016 Hematochezia 05/21/2016 05/24/2016 Social History Tobacco Use Types Packs/Day Years Used Date Smoking Tobacco: Every Day Cigarettes Alcohol Use Standard Drinks/Week Comments No 0 (1 standard drink = 0.6 oz pur e alcohol) Comments Unknown Sex and Gender Information Value Date Recorded Sex Assigned at Not on file 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 Gender Identity Not on file Sexual Orientation Not on file Last Filed Vital Signs Vital Sign Reading Time Taken Comments Blood Pressure 130/68 05/29/2016 1:54 PM CDT Pulse 62 05/24/2016 10:56 AM CDT Temperature 36.7 C (98.1 F) 05/29/2016 1:54 PM CDT Respiratory Rate 14 05/29/2016 1:54 PM CDT Oxygen Saturation - - Inhaled Oxygen Concentration - - Weight 63.5 kg (140 lb) 05/29/2016 1:54 PM CDT Height 172.7 cm (5' 8 ) 05/29/2016 1:54 PM CDT Body Mass Index 21.29 05/29/2016 1:54 PM CDT Plan of Treatment Health Maintenance Due Date Last Done Comments DTAP/TDAP/TD VACCINES (1 - Tdap) 1970 BREAST CANCER SCREENING 1991 FIT-DNA Q 3 years 1996 FIT/FOBT Q 1 year 1996 Flex Sig/CT Colonography Q 5 years 1996 PNEUMOCOCCAL VACCINE 50+ YEARS (1 of 1 - PCV) 04/02/20 ZOSTER VACCINE (1 of 2) 2001 OSTEOPOROSIS SCREENING 2016 COLORECTAL SCREENING 05/23/2021 05/23/2016 Colorectal Cancer Screening 05/23/2021 INFLUENZA VACCINE (#1) 2025 RSV VACCINE (60+ or ) (1 - 1-dose 75+ series) 2026 Medical Devices Implanted Type Area Rubber Mold Maker Device Identifier Shelf Expiration Date Model / Serial / Lot Mesh Prolene Lg [facility] [id number] Implanted:Qty: 1 on 05/12/2014 by Omega Eastman, DO Mesh Right: Groin [employer] 05/21/2019 [facility] / / [id number]
--- OUTSIDE RECORDS SUMMARY | 2025-05-28 13:25 | XMS_ITS | Clinical Summary ---
Author Organization [facility] Address [address] [place] [address] Phone Care Team Providers Care Manager Hospital Name Role Phone Unavailable Primary Care Provider [...] High 05/04/2014 Unclassified Drug Palpitations Low 05/04/2014 Medications No known medications Active Problems Problem Noted Date Diagnosed Date Protein-calorie malnutrition, moderate 6 Cigarette dependence 05/21/2016 Ulcerative colitis 05/21/2016 Colitis 05/21/2016 Acute colitis Ulcerative pancolitis with complication Acute ischemic colitis Resolved Problems Problem Noted Date Diagnosed Date Resolved Date Hematochezia 05/21/2016 05/24/2016 Acute gastrointestinal hemorrhage 05/21/2016 05/24/2016 Social History Tobacco Use Types Packs/Day Years Used Date Smoking Tobacco: Every Day Cigarettes Alcohol Use Standard Drinks/Week Comments No 0 (1 standard drink = 0.6 oz pur e alcohol) Comments Unknown Sex and Gender Information Value Date Recorded Sex Assigned at Not on file 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 Gender Identity Not on file Sexual Orientation Not on file Occupation Industry Job Start Date Job End Date Not on file Not on file Not on file Not on file Last Filed Vital Signs Vital Sign Reading Time Taken Comments Blood Pressure 130/68 05/29/2016 1:54 PM CDT Pulse 62 05/24/2016 10:56 AM CDT Temperature 36.7 C (98.1 F) 05/29/2016 1:54 PM CDT Respiratory Rate 14 05/29/2016 1:54 PM CDT Oxygen Saturation 99% 05/24/2016 10:56 AM CDT Inhaled Oxygen Concentration - - Weight 63.5 [...] series) 2026 Medical Devices Implanted Type Area Director [facility] Device Identifier Shelf Expiration Date Model / Serial / Lot Mesh Prolene Lg [facility] [id number] Implanted:Qty: 1 on 05/12/2014 by Omega Eastman DO at [facility] Mesh Right: Groin [employer] 05/21/2019 [facility] / / [id number] Advance Directives For more information, please contact: [phone] * Full Code (Latest Code Status on File) Date Activated Date Inactivated Comments 05/23/2016 10:09 AM 05/24/2016 4:32 PM * Full Code Date Activated Date Inactivated Comments 05/21/2016 5:34 PM 05/23/2016 10:09 AM * Full Code Date Activated Date Inactivated Comments 05/12/2014 8:38 AM 05/12/2014 1:06 PM * Full Code Date Activated Date Inactivated Comments 05/12/2014 6:28 AM 05/12/2014 8:38 AM
--- OUTSIDE RECORDS SUMMARY | 2025-05-28 13:25 | XMS_ITS | Encounter Summary ---
Author Organization [facility] Address [address] [place] [address] Care Team Providers Care First Beater Name Role Phone Unavailable Primary Care Provider Unavailabl e Encounter Details Date Type Department Care Team (Latest Contact Info) Description 10/04/2004 Outpatient Historical [facility] [address] [place] [phone] Determinations, Dis [facility] [address] [address] GENERAL MEDICAL EXAM NOS (Primary Dx) Social History Tobacco Use Types Packs/Day Years Used Date Smoking Tobacco: Never Assessed Comments Unknown Sex and Gender Information Value Date Recorded Sex Assigned at Not on file 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
--- NOTE | 2025-05-28 13:41 | ECG_ITS ---
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 Measurements Intervals [place] Rate: 95 P: 69 CO: 151 QRS: 72 QRSD: 74 T: 62 QT: 331 QTc: 417 Interpretive Statements SINUS RHYTHM SEPTAL MYOCARDIAL INFARCTION , PROBABLY OLD [40+ ms Q WAVE IN V1/V2] Compared to ECG 07/18/2023 12:47:49 No significant changes Electronically Signed On 05-29-2025 13:51:42 CDT by Rose Mary Carvajal M.D. [email or web address]
--- NOTE | 2025-05-28 13:45 | ED_ITS ---
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 Says this started about 3 days ago. Worsening cough. Some pleuritic chest pain. No lower extremity swelling. No altered mental status. She says her albuterol inhaler does help some. No altered mental status. No focal motor deficits. No abdominal pain. No vomiting. Related Data Previous Rx's ?Medication ?Instructions ?Recorded ipratropium 0.5 mg-albuterol 3 mg 3 ml inhalation Q6H PRN shortness 11/28/22 (2.5 mg base)/3 mL nebulization of breath or wheezing #180 mL soln albuterol sulfate 90 mcg/actuation 2 puff inhalation Q 4H PRN 10/04/23 aerosol inhaler Shortness Of Breath #8.5 gra ms fluticasone furoate 100 1 inh inhalation DAILY #60 e a 11/09/23 mcg-vilanterol 25 mcg/dose inhalation powder (Breo Ellipta) metronidazole 375 mg capsule 375 mg PO Q12H #20 caps 0 01/08/24 (Flagyl) albuterol sulfate 90 mcg/actuation 2 inh inhalation Q4 H #6.7 grams 05/28/25 aerosol inhaler (Ventolin HFA) doxycycline hyclate 100 mg capsule 100 mg PO BID 7 day s #14 caps 05/28/25 prednisone 20 mg tablet 60 mg (3 x 20 mg) PO DAILY 5 days 05/28/25 #15 tabs Allergies Allergy/AdvReac Type Severity Reaction Status Date / Time aspirin Allergy ALGY-Rash Verified 04/04/23 12:53 Penicillins Allergy ALGY-Anaphy Verified 04/04/23 12:53 laxis umeclidinium (From Anoro Allergy ADR-Cough Verified 04/04/23 12:53 Ellipta) vilanterol (From Anoro Allergy ADR-Cough Verified 04/04/23 12:53 Ellipta) STEROIDS Allergy Unknown Uncoded 04/04/23 12:53 Review of Systems 2 Narrative: Constitutional symptoms: Negative except as documented in HPI. Skin symptoms: Negative except as documented in HPI. Eye symptoms: Negative except as documented in HPI. ENMT symptoms: Negative except as documented in HPI. Respiratory symptoms: Negative except as documented in HPI. Cardiovascular symptoms: Negative except as documented in HPI. Gastrointestinal symptoms: Negative except as documented in HPI. Genitourinary symptoms: Negative except as documented in HPI. Musculoskeletal symptoms: Negative except as documented in HPI. Neurologic symptoms: Negative except as documented in HPI. Psychiatric symptoms: Negative except as documented in HPI. Endocrine symptoms: Negative except as documented in HPI. PFSH ED 2 PFSH: Medical History (Updated 05/28/25 @ 14:56 by Ambar Rahman MD) Type 2 diabetes mellitus Rheumatoid arthritis Osteoarthritis Hypertension COVID-19 Diverticulitis Lower GI bleed Ischemic colitis Ulcerative colitis COPD (chronic obstructive pulmonary disease) Surgical History S/P tonsillectomy History of partial hysterectomy History of colonoscopy Family History Other CAD (coronary artery disease) Denies family history of Diabetes Cancer Social History Smoking and tobacco/nicotine status: former use of tobacco/nicotine Quit status (tobacco/nicotine): has quit using Year quit tobacco: September 2022 Former quit date comment: 1ppd x 46 years Alcohol intake: never Substance/Drug Use: never Caregiver/support person: No Lives independently: Yes Household members: none Housing: House Pets and animals: Yes Physical Exam 2 Narrative: EXAM NARRATIVE: General: Alert, no acute distress. Skin: Warm, dry. Head: Normocephalic, atraumatic. Neck: Supple, trachea midline. Eye: Extraocular movements are intact. Ears, nose, mouth and throat: Oral mucosa moist. Cardiovascular: Regular rate and rhythm, Normal peripheral perfusion. Respiratory: coarse, scattered wheeze, mild increased wob. tachypnea, breath sounds are equal, Symmetrical chest wall expansion. Gastrointestinal: Soft, Nontender, Non distended Musculoskeletal: Normal ROM, no deformity. Neurological: Alert and oriented, No focal neurological deficit observed. Psychiatric: Cooperative, appropriate mood & affect. Course 2 Vital Signs: Vital signs: Vital Signs Temperature 98.5 F 05/28/25 13:09 Pulse Rate 94 05/28/25 14:50 Respiratory Rate 31 H 05/28/25 14:50 Blood Pressure 154/80 05/28/25 14:50 Pulse Oximetry 96 05/28/25 14:50 Oxygen Delivery Me thod Nasal Cannula 05/28/25 14:23 Oxygen Flow Rate 2 05/28/25 14:23 MDM - SOB/Dyspnea Medical Decision Making Differential diagnosis for patient with shortness of breath includes but is not limited to and based on the above HPI, review of systems and physical exam: Pneumonia. Bronchitis. Asthma or COPD with acute exacerbation. Acute coronary syndrome / OK. Pulmonary embolism. Anxiety. Congestive heart failure. Viral infections including influenza and Covid-19. Atrial fibrillation. Anxiety. Pleural effusion. Pneumothorax. Orders placed to evaluate differential diagnosis based on the above differential, HPI and physical exam EKG: Time 1341. Rate 95. Normal sinus rhythm, No ST-T changes, no ectopy, normal [place] & QRS intervals, This was reviewed and interpreted by myself the ER physician at 1345 Chest x-ray: Some haziness in the right lower lobe. Possible early pneumonia or pneumonitis. No other focal infiltrates. This was reviewed and interpreted by myself the emergency room physician. I also reviewed the studies with the radiologist on-call. Lab Review: Laboratory results were reviewed and interpreted by myself the emergency room physician. No leukocytosis. No anemia. No renal failure. AB.4 5/36/104 with an O2 sat of 99% on 3 L nasal cannula. No hypoxemia above her baseline and no CO2 retention. I reviewed the patient's medical record. Reexamination: Patient appears somewhat improved. Sats in the upper 90s on her home 3 L. Wheezing has improved some. No increased work of breathing at this time. We discussed findings with chest x-ray and need for repeat chest x-ray. She wants to go home. Assessment and plan: COPD with acute exacerbation Chronic hypoxemic respiratory failure ?IV Solu-Medrol. 2 updrafts. - Discharged home - Discussed plan with patient. Answered any questions. - Evaluation and treatment of this problem were appropriate in the emergency setting. Lab Data 05/28/25 13:34 05/28/25 13:34 Labs/Radiology: Laboratory Results WBC 6.10 10^3/uL (3.29-11.43) 05/28/25 13:34 RBC 4.55 10^6/uL (3.85-5.65) 05/28/25 13:34 Hgb 12.70 g/dL (11.27-16.99) 05/28/25 13:34 Hct 39.9 % (36-47) 05/28/25 13:34 MCV 87.7 fl (85-98) 05/28/25 13:34 MCH 27.9 pg (27-33) 05/28/25 13:34 MCHC 31.8 g/dL (30-55) 05/28/25 13:34 RDW 13.2 % (12.1-15.1) 05/28/25 13:34 Plt Count 308 10^3/cmm (157-399) 05/28/25 13:34 MPV 9.4 fL (7.4-10.4) 05/28/25 13:34 Neut % (Auto) 68.3 % 05/28/25 13:34 Lymph % (Auto) 18.0 % 05/28/25 13:34 [place] % (Auto) 9.5 % 05/28/25 13:34 Eos % (Auto) 3.4 % 05/28/25 13:34 Baso % (Auto) 0.5 % 05/28/25 13:34 Neut # (Auto) 4.16 10^3/uL (1.8-7.7) 05/28/25 13:34 Lymph # (Auto) 1.1 10^3/uL (0.8-4.8) 05/28/25 13:34 [place] # (Auto) 0.6 10^3/uL (0.2-0.9) 05/28/25 13:34 Eos # (Auto) 0.2 10^3/uL (0.0-0.8) 05/28/25 13:34 Baso # (Auto) 0.0 10^3/uL (0.0-0.1) 05/28/25 13:34 Nucleated RBC % (auto) 0 % 05/28/25 13:34 Nucleated RBCs # 0.0 /100WBC 05/28/25 13:34 Specimen Type Arterial 05/28/25 14:16 Sample Site Radial, left 05/28/25 14:16 ABG pH 7.45 (7.35-7.45) 05/28/25 14:16 ABG pCO2 35.7 mmHg (35-45) 05/28/25 14:16 ABG pO2 104.0 mmHg (80.0-100.0) H 05/28/25 14:16 ABG PO2/FiO2 Ratio 371 05/28/25 14:16 ABG HCO3 25.0 mmol/L (22-26) 05/28/25 14:16 ABG O2 Saturation 98.9 05/28/25 14:16 ABG Base Excess 1.3 mmol/L (-2.0-2.0) 05/28/25 14:16 Jax Test Pos 05/28/25 14:16 A-a O2 Gradient 6.6 mmHg (5-10) 05/28/25 14:16 Hematocrit 36.7 % (37-47) L 05/28/25 14:16 Hgb O2 Saturation 97.1 % (95-100) 05/28/25 14:16 Carboxyhemoglobin 0.9 %THgb (0.4-20.1) 05/28/25 14:16 Methemoglobin 0.9 % (0.4-1.5) 05/28/25 14:16 Total Hemoglobin 12.0 g/dL (12-16) 05/28/25 14:16 Sodium 139.0 mmol/L (131-143) 05/28/25 14:16 Potassium 3.8 mmol/L (3.5-5.0) 05/28/25 14:16 Glucose 121.0 mg/dL (70-115) H 05/28/25 14:16 Ionized Calcium 1.2 mmol/L (1.1-1.4) 05/28/25 14:16 O2 Delivery Device Nc 05/28/25 14:16 O2 Liters/Min 2.0 % 05/28/25 14:16 FiO2 28.0 % 05/28/25 14:16 Farm Machinery Mechanic ID Amh 05/28/25 14:16 Sodium 139 mmol/L (136-145) 05/28/25 13:34 Potassium 3.9 mmol/L (3.5-5.1) 05/28/25 13:34 Chloride 98 mmol/L (98-107) 05/28/25 13:34 Carbon Dioxide 24 mmol/L (22-29) 05/28/25 13:34 Anion Gap 20.9 (5-19) H 05/28/25 13:34 BUN 17 mg/dL (8-23) 05/28/25 13:34 Creatinine 0.7 mg/dL (0.5-0.9) 05/28/25 13:34 GFR Calculation Not Reportable 05/28/25 13:34 Glucose 122 mg/dL (65-115) H 05/28/25 13:34 Calculated Osmolality 291 mOsm/kg (285-295) 05/28/25 13:34 Lactic Acid 1.4 mmol/L (0.5-2.2) 05/28/25 13:34 Calcium 9.0 mg/dL (8.5-10.5) 05/28/25 13:34 Total Bilirubin 0.4 mg/dL (0.15-1.2) 05/28/25 13:34 AST 15 U/L (0-32) 05/28/25 13:34 ALT 9 U/L (0-33) 05/28/25 13:34 Alkaline Phosphatase 109 U/L (35-105) H 05/28/25 13:34 Troponin T Baseline 9 ng/L (0-10) 05/28/25 13:34 C-Reactive Protein 53.1 mg/L (0.0-4.9) H 05/28/25 13:34 NT-Pro-B Natriuret Pep 179 pg/mL (0-125) H 05/28/25 13:34 Total Protein 7.1 g/dL (6.6-8.7) 05/28/25 13:34 Albumin 4.1 g/dL (3.5-5.2) 05/28/25 13:34 Globulin 3.0 g/dL (1.3-4.6) 05/28/25 13:34 Influenza A (PCR) Negative (Negative) 05/28/25 13:42 Influenza Type B (PCR) Negative (Negative) 05/28/25 13:42 RSV (PCR) Negative (Negative) 05/28/25 13:42 SARS-CoV-2 (PCR) Negative (Negative) 05/28/25 13:42 All radiology interpretation(s) finalized by discharge Discharge Plan Discharge Patient Disposition: Home Clinical Impression: Acute exacerbation of chronic obstructive airways disease Condition: Stable Prescriptions: New doxycycline hyclate 100 mg capsule 100 mg PO BID 7 Days Qty: 14 0RF prednisone 20 mg tablet 60 mg PO DAILY 5 Days Qty: 15 0RF albuterol sulfate [Ventolin HFA] 90 mcg/actuation HFA aerosol inhaler 2 inh inhalation Q4H Qty: 6.7 0RF Rx Instructions: Please schedule every 4 hours for the next 3 days with up to every every 2 as needed. Please provide patient with a spacer/AeroChamber No Action albuterol sulfate 90 mcg/actuation HFA aerosol inhaler 2 puff INHALATION Q4H PRN (Reason: Shortness Of Breath) Qty: 8.5 3RF fluticasone furoate-vilanterol [Breo Ellipta] 100-25 mcg/dose blister with device 1 inh inhalation DAILY Qty: 60 6RF metronidazole [Flagyl] 375 mg capsule 375 mg PO Q12H Qty: 20 0RF ipratropium-albuterol 0.5 mg-3 mg(2.5 mg base)/3 mL solution for nebulization 3 ml inhalation Q6H PRN (Reason: shortness of breath or wheezing) Qty: 180 0RF Discharge Orders: Discharge ED (Routine); Ordered 05/28/25 Ordered By: Ambar Rahman Referrals: Nidhi Jessica, RN CASE MANAGER [Primary Care Provider, Family Practice] Discharge Diet: Usual diet Discharge Activity: Increase activity as tolerated Patient Instructions: COPD (Chronic Obstructive Pulmonary Disease) (ED), Opioid Safety, Pain Management, Patient Portal & Niya Instructions Activity Restrictions/Additional Instructions: You should have a follow-up chest x-ray in a couple weeks with your PCP. Thank you for choosing [facility] for your healthcare needs today. You have been screened and evaluated and felt safe for discharge. Health conditions do change or evolve sometimes and as such it is important that you follow up with your Primary Doctor to be re checked, 3-5 days is a general good time frame for follow up. You are always welcome to return to the ED for re assessment if your symptoms are worsening or you have new concerns Print Language: Estonian Coding Level of Care Code ED Residence Director for Louise Montero
[2025-05-28 13:47] LABS: Hematocrit 39.9 % (36-47); Hemoglobin 12.70 g/dL (11.27-16.99); Mean Corpuscular HGB Conc 31.8 g/dL (30-55); Mean Corpuscular Hemoglobin 27.9 pg (27-33); Mean Corpuscular Volume 87.7 fl (85-98); Nucleated Red Blood Cells % 0 %; Platelet Count 308 10^3/cmm (157-399); Red Blood Count 4.55 10^6/uL (3.85-5.65); White Blood Count 6.10 10^3/uL (3.29-11.43)
[2025-05-28] MEDS: methylPREDNISolone sod succ 125 mg/2 mL INJ IVP (13:48)
[2025-05-28 14:05] LABS: Lactic Sepsis W/Reflex 1.4 mmol/L (0.5-2.2)
[2025-05-28 14:07] LABS: Troponin(5th) Baseline 9 ng/L (0-10)
[2025-05-28 14:19] LABS: Alanine Aminotransferase 9 U/L (0-33); Albumin Level 4.1 g/dL (3.5-5.2); Alkaline Phosphatase 109 U/L (35-105); Anion Gap 20.9 (5-19); Aspartate Amino Transferase 15 U/L (0-32); Blood Urea Nitrogen 17 mg/dL (8-23); Calcium 9.0 mg/dL (8.5-10.5); Carbon Dioxide 24 mmol/L (22-29); Chloride 98 mmol/L (98-107); Creatinine Clr Calc Pharmacy 56.2819; Globulin 3.0 g/dL (1.3-4.6); Glucose 122 mg/dL (65-115); NT Pro B Type Natriuretic Pept 179 pg/mL (0-125); Osmolality Calculated 291 mOsm/kg (285-295); Potassium 3.9 mmol/L (3.5-5.1); Sodium 139 mmol/L (136-145); Total Protein 7.1 g/dL (6.6-8.7)
[2025-05-28 14:27] LABS: Respiratory Syncytial Virus Ce NEGATIVE (Negative); SARS-CoV-2 PCR NEGATIVE (Negative)
[2025-05-28 14:28] LABS: ABG PCO2 35.7 mmHg (35-45); ABG PH Result 7.45 (7.35-7.45); Alveolar-Arterial Oxygen Gradi 6.6 mmHg (5-10); Arterial Blood Gas Hematocrit 36.7 % (37-47); Blood Gas Allen Test Pos; Blood Gas LPM 2.0 %; Blood Gas Operator Identificat AMH; Blood Gas Sample Site Radial, left; Blood Gas Sample Type Arterial; Carboxyhemoglobin 0.9 %THgb (0.4-20.1); Glucose Level-ABG 121.0 mg/dL (70-115); HCO3 ABG 25.0 mmol/L (22-26); Ionized Calcium Level - ABG 1.2 mmol/L (1.1-1.4); Methemoglobin 0.9 % (0.4-1.5); Oxygen Saturation ABG 98.9; PO2 ABG 104.0 mmHg (80.0-100.0); PO2 FiO2 Ratio Arterial Blood 371; Potassium Level - ABG 3.8 mmol/L (3.5-5.0); Sodium Level - ABG 139.0 mmol/L (131-143)
[2025-05-28 15:51] LABS: Troponin 5 2HR 7.57 ng/L (0-10); Troponin 5 2HR Delta -1.43 ABS# (0-10)
== END 2025-05-28 16:13 | disposition home or self-care (01) ==
PROVIDERS: Emergency Provider Emergency Medicine; PCP Nurse Practitioner
DX: J44.1 Chronic obstructive pulmonary disease with (acute) exacerbation (principal); Z11.52 Encounter for screening for COVID-19; Z87.891 Personal history of nicotine dependence; E11.9 Type 2 diabetes mellitus without complications; I10 Essential (primary) hypertension
CPT/HCPCS: 36415; 36600; 71045; 80051; 80053; 82330; 82805; 83605; 83880; 84484; 85025; 86140; 87040; 87637; 93005; 94640; 96374; 99285; J2919; J7613; J9999

== ENCOUNTER 2025-06-08 14:28 | Outpatient (CLI) | payer MEDICARE, SELFPAY ==
--- NOTE | 2025-06-08 14:32 | XRR_ITS ---
PROCEDURE INFORMATION: Exam: XR Chest Exam date and time: 06/08/2025 2:38 PM Age: 75 years old Clinical indication: Cough and orthopnea (sob when lying down); Cough, SOB for 2 weeks, HX of pneumonia; Additional info: J18.9 pneumonia, unspecified TECHNIQUE: Imaging protocol: Radiologic exam of the chest. Views: 2 views. COMPARISON: CR XR chest 1V portable [id number] 05/28/2025 1:41 PM FINDINGS: Lungs: There is biapical pleural thickening. Masslike change in the right lung apex is noted. It appears more pronounced than on the prior chest x-ray dated 05/28/2025. No focal infiltrate is identified. Emphysematous changes are present throughout the lungs. Pleural spaces: No effusion. Heart/Mediastinum: Unremarkable. No cardiomegaly. Bones/joints: Bony structures appear osteopenic. XR/XR chest 2V* [id number] IMPRESSION: No acute infiltrate identified. Masslike change in the right lung apex is more pronounced than on the prior chest x-ray. Emphysematous changes.
== END 2025-06-08 14:29 | disposition home or self-care (01) ==
LOC: RAD 14:29
PROVIDERS: PCP Nurse Practitioner; Visit Provider Nurse Practitioner
DX: J18.9 Pneumonia, unspecified organism (principal); R91.8 Other nonspecific abnormal finding of lung field; J92.9 Pleural plaque without asbestos
CPT/HCPCS: 71046

== ENCOUNTER 2025-06-26 10:23 | Outpatient (CLI) | payer MEDICARE, SELFPAY ==
--- NOTE | 2025-06-26 10:30 | CT_ITS ---
WS: [id number] CT chest ION (PULM ONLY) [id number] HISTORY: Pre bronch TECHNIQUE: Axial imaging performed through the thorax. Coronal and sagittal reformats. for CONTRAST: None. DLP: 171.48 mGy COMPARISON: 03/19/2025, 09/19/2024, PET/CT 06/17/2024 Lungs and central airway: Severe biapical pleural parenchymal scarring, greater on the RIGHT. Similar findings as compared to prior CT examinations. Reidentified is a spiculated nodule in the RIGHT upper lobe, image 154 of series 4 measures 10 x 15 mm. This nodule is closely associated with the PET/CT positive finding from 06/17/2024. This nodule was present on 11/02/2022 and has slightly increased in its overall consolidation. There is additional curvilinear adjacent opacity which is stable. LEFT upper lobe subsolid opacification 10 mm not significantly changed. Tiny spiculated nodule superior segment LEFT lower lobe measures 4.4 mm. Nodule appears slightly more prominent as compared to prior studies. Additional consolidation superior medial segment LEFT lower lobe abuts the pleura. This opacification measures 3.3 x 2.8 cm. Centrilobular emphysema with areas of scarring and fibrosis at the lung bases. No effusions. Mild atherosclerosis aorta. Normal size aorta. Normal size heart. No pathologically enlarged lymph nodes. Mild bilateral adrenal hyperplasia. CT/CT chest ION (PULM ONLY) [id number] IMPRESSION: 1. Severe biapical pleural parenchymal scarring is stable. 2. Slight increase in consolidation spiculated RIGHT upper lobe nodule now maida suring 10 x 15 mm. This nodule was previously noted as positive on PET/CT. 3. New dense consolidation superior medial LEFT lower lobe. Pneumonia versus n eoplasm. 4. LEFT upper lobe subsolid opacification 10 mm is not changed. 5. New tiny spiculated nodule LEFT lower lobe 4.4 mm. Indeterminate. PET/CT wo uld provide additional information.
== END 2025-06-26 10:24 | disposition home or self-care (01) ==
LOC: RAD 10:27
PROVIDERS: PCP Nurse Practitioner; Visit Provider Internal Medicine
DX: R91.1 Solitary pulmonary nodule (principal); J98.4 Other disorders of lung; J43.2 Centrilobular emphysema; J84.10 Pulmonary fibrosis, unspecified; E27.8 Other specified disorders of adrenal gland
CPT/HCPCS: 71250

== ENCOUNTER 2025-07-10 11:57 | Outpatient (CLI) | payer MEDICARE, SELFPAY ==
--- NOTE | 2025-07-10 12:30 | PETR_ITS ---
PROCEDURE INFORMATION: Exam: PET/CT Skull Base to Mid-thigh Exam date and time: 07/10/2025 1:51 PM Age: 75 years old Clinical indication: Abnormal findings; Solitary pulmonary nodule LABS AND CLINICAL REPORTS: Glucose: 149 mg/dl Treatment strategy for malignancy (PET staging): Initial Staging (PI) TECHNIQUE: Imaging protocol: Following at least four-hour fasting and following the injection of radiopharmaceutical, low dose CT images were obtained. Then, PET images were obtained. Attenuation corrected images were constructed using the CT scan. Fused images of PET and CT were reviewed. The standardized uptake values (SUV) reported below are maximum values within a region of interest, expressed in gm/ml. Exam includes orbital meatal line to mid-thigh. SUV normalization method: BodyWeight Radiopharmaceutical: 10.69 mCi F-18 FDG (Fluorodeoxyglucose), IV. Time of imaging post radiopharmaceutical administration: 46 minutes Injection site: LEFT AC COMPARISON: PT PET skull to thigh INIT [id number] 12/25/2023 11:58 AM FINDINGS: Brain: Visualized brain has normal physiologic uptake. Pharynx: No abnormal uptake. Larynx: No abnormal uptake. Lungs, pleura and trachea: Moderate apical predominant emphysema. New cavitary consolidation in the medial left lower lobe with diffuse increased avidity (SUV max 9.0). There is slightly increased avidity surrounding the cavitary portion of this consolidation with SUV max 12.1. Stable size but increased avidity of a spiculated cavitary right upper lobe nodule measuring 1.7 cm and demonstrating SUV max of 3.7, previously 1.1. A previously seen anterior left upper lobe ground-glass nodule has resolved. Grossly stable size and avidity of 1.7 cm ground-glass left upper lobe nodule with avidity similar to blood pool. Similar severe biapical scarring. Heart: Normal physiologic uptake. Mediastinal space: No abnormal uptake. Liver: No abnormal uptake. Gallbladder and biliary ducts: No abnormal uptake. Pancreas: No abnormal uptake. Spleen: No abnormal uptake. Adrenal glands: No abnormal uptake. Kidneys and ureters: Normal physiologic uptake. Stomach and bowel: No abnormal uptake. Vasculature: No abnormal uptake. Lymph nodes: No abnormal uptake. No lymphadenopathy in the head, neck, chest, abdomen, pelvis, and extremities. Skeleton: No abnormal uptake in the visualized axial and appendicular skeleton. Soft tissues: No abnormal uptake in the visualized head, neck, chest, abdomen, pelvis, and extremities. METRICS: Mediastinal blood pool: SUV max = 2.5 Liver uptake: SUV max = 2.8 PET/PET skull to thigh SUBS [id number] IMPRESSION: 1. New hypermetabolic consolidation in the medial left lower lobe with slightly higher avidity surrounding the cavitary portion of this consolidation. Findings could reflect cavitary pneumonia versus pneumonia and cavitary neoplasm. 2. Stable size but slightly increased avidity of a spiculated cavitary right upper lobe nodule, concerning for malignancy. 3. Stable ground-glass left upper lobe nodule with mild avidity. Indolent neoplasm is possible.
== END 2025-07-10 11:58 | disposition home or self-care (01) ==
LOC: RAD 12:02
PROVIDERS: PCP Nurse Practitioner; Visit Provider Internal Medicine
DX: R91.1 Solitary pulmonary nodule (principal); R91.8 Other nonspecific abnormal finding of lung field; J98.4 Other disorders of lung
CPT/HCPCS: 78815; A9552

== ENCOUNTER → 2025-07-20 14:53 | Outpatient (BNVA) | payer MEDICARE, SELFPAY | PROVIDERS: PCP Nurse Practitioner; Visit Provider Internal Medicine | DX: J44.9 Chronic obstructive pulmonary disease, unspecified (principal); R91.1 Solitary pulmonary nodule; R91.8 Other nonspecific abnormal finding of lung field; Z99.81 Dependence on supplemental oxygen; Z87.891 Personal history of nicotine dependence; R06.02 Shortness of breath | CPT/HCPCS: 36415; 85610; 85730; 99204; 99214 ==

== ENCOUNTER 2025-07-21 05:46 | Day surgery (SDC) | payer MEDICARE, SELFPAY ==
[2025-07-21] VITALS (11 sets, daily range): BP systolic 130–170; BP diastolic 52–93; PULSE 71–95; RESP 16–18; TEMP 36.2–36.4; O2SAT 90–100; BMI 21.6
--- NOTE | 2025-07-21 06:40 | ANES.PREANE2 ---
Pre-Anesthetic Assessment Height/Weight: Height 5 ft 5 in Weight 130 lb Temp Pulse Resp BP Pulse Ox O2 Del Method 97.2 F L 95 18 170/92 93 Room Air 07/21/25 06:20 07/21/25 06:20 07/21/25 06:20 07/21/25 06:20 07/21/25 06:20 07/21/25 06:20 Preop Diagnosis: Chronic respiratory failure Operation Date: 07/21/25 07:00 Proposed Procedures p Bronchoscopy [id number] R91.1(Not Applicable) - Ricardo Dunlap MD s Ion Robotic Assisted Bronchoscopy(Not Applicable) - Ricardo Dunlap MD s Ebus(Not Applicable) - Ricardo Dunlap MD Was Beta Kaylyn taken within 24 hours: N/A Was Clonidine taken within 24 hours: N/A Last intake: Intake Last Liquid Date 07/20/25 Last Liquid Time 18:00 Last Solid Date 07/20/25 Last Solid Time 18:00 Social No alcohol and No tobacco Quit smoking 3 years ago Exam alert and oriented x 3 Diminished breath sounds bilaterally Airway Submandibular: within normal limits Cervical ROM: within normal limits Mallampati: Class III Dentition: false Anesthetic Plan ASA status: 4 Anesthesia: General Other: No prior issues with anesthesia NPO since yesterday evening Chronic hypoxemic respiratory failure. On 3 L nasal cannula at home but does not wear it like she is post to Recent COPD exacerbation at the beginning of May Patient has a 1.4 cm ground glass nodule in the left upper lobe. Rheumatoid arthritis Hypertension documented on chart but patient denies this. Preop BP 170/92 Labs reviewed from May and acceptable for procedure today EKG showing sinus rhythm with old septal [place] Plan for GETA Medications/Allergies Home Medications ?Medication ?Instructions ?Recorded ?Confirmed ?Last Taken ?Type ipratropium 0.5 mg-albuterol 3 mg 3 ml inhalation Q6H PRN shortness 11/28/22 07/20/25 07/13/25 Rx (2.5 mg base)/3 mL nebulization of breath or wheezing #180 mL soln albuterol sulfate 90 mcg/actuation 2 puff inhalation Q4H PRN 10/04/23 07/20/25 07/20/25 Rx aerosol inhaler Shortness Of Breath #8.5 grams budesonide-formoterol HFA 80 2 puff inhalation BID 07/20/25 07/21/25 07/21/25 History mcg-4.5 mcg/actuation aerosol inhaler (Breyna) Allergies Allergy/AdvReac Type Severity Reaction Status Date / Time aspirin Allergy ALGY-Rash Verified 07/20/25 15:39 budesonide (From Breztri Allergy Unknown Verified 07/20/25 15:40 Aerosphere) Corticosteroids Allergy Unknown Verified 07/20/25 15:39 (Glucocorticoids) formoterol (From Breztri Allergy Unknown Verified 07/20/25 15:40 Aerosphere) glycopyrrolate (From Breztri Allergy Unknown Verified 07/20/25 15:40 Aerosphere) Penicillins Allergy ALGY-Anaphy Verified 07/20/25 15:39 laxis umeclidinium (From Anoro Allergy ADR-Cough Verified 07/20/25 15:39 Ellipta) vilanterol (From Anoro Allergy ADR-Cough Verified 07/20/25 15:39 Ellipta) [facility] Anesthesia Medical History (Updated 07/20/25 @ 17:34 by Ricardo Dunlap MD) Type 2 diabetes mellitus Rheumatoid arthritis Osteoarthritis Hypertension COVID-19 Diverticulitis Lower GI bleed Ischemic colitis Ulcerative colitis COPD (chronic obstructive pulmonary disease) Surgical History S/P tonsillectomy History of partial hysterectomy History of colonoscopy Family History Other CAD (coronary artery disease) Denies family history of Diabetes Cancer Social History Smoking and tobacco/nicotine status: former use of tobacco/nicotine Quit status (tobacco/nicotine): has quit using Year quit tobacco: September 2022 Former quit date comment: 1ppd x 46 years Alcohol intake: never Substance/Drug Use: never Caregiver/support person: No Lives independently: Yes Household members: none Housing: House Pets and animals: Yes Data Anesthesia Cardiac Studies: Echocardiogram 11/02/22
--- NOTE | 2025-07-21 07:54 | SC_ITS ---
WS: [id number] EXAMINATION: C-arm FL for Bronchoscopy ORDER DATE: 07/21/2025 7:54 AM REASON FOR EXAM: ion/bronch/ebus COMPARISON: None available. FLUOROSCOPY TIME: 4.39 minutes # OF SPOT FILMS: Multiple FINDINGS: Robotic bronchoscopic biopsy of the abnormalities in the right upper and left upper lobe. SC/C-arm FL for Bronchoscopy IMPRESSION: As above
--- NOTE | 2025-07-21 10:46 | XRR_ITS ---
PROCEDURE INFORMATION: Exam: XR Chest Exam date and time: 07/21/2025 10:56 AM Age: 75 years old Clinical indication: Device placement; Other: Post ion bronch; Prior surgery; Surgery date: Post-operative (0-2 days) TECHNIQUE: Imaging protocol: Radiologic exam of the chest. Views: 1 view. COMPARISON: CT chest ION (PULM ONLY) [id number] 07/21/2025 6:47 AM FINDINGS: Lungs: COPD. No infiltrate or edema. Pleural spaces: Unremarkable. No pleural effusion. No pneumothorax. Heart/Mediastinum: Unremarkable. No cardiomegaly. Bones/joints: Unremarkable. XR/XR chest 1V portable [id number] IMPRESSION: No acute findings.
[2025-07-21] MEDS: lidocaine 2% INJ 20 mL XX (10:47)
--- NOTE | 2025-07-21 10:51 | P.BOP_ITS ---
Interventional Pulmonary Immediate Brief Operative Note: * Date of Procedure:?July 21, 2025 * Preoperative Diagnosis:?Left lower lobe lung mass. Right upper lobe nodule * Postoperative Diagnosis:?[Same as pre-op] * Procedures Performed: Robotic bronchoscopy with mediastinal staging EBUS _ * Surgeon / Dump Truck Operator:?Ricardo Dunlap MD * Anesthesia: * ?General anesthesia * Findings: Normal bronchoscopic findings * Estimated Blood Loss (EBL):?[Minimal] * Specimens: * ?BAL fluid left lower lobe and right upper lobe * ?TBNA from station(s) LLL mass, RUL nodule, 11R, 4R, station 7, 4L and 11L * ?Forceps/cryo biopsy from LLL mass and RUL nodule. Station 11L * Brushings from LLL mass and RUL nodule * Complications:?None * Disposition:?Transferred to PACU in stable condition. Ricardo Dunlap MD, FACP Interventional Pulmonogist
--- NOTE | 2025-07-21 10:51 | W.PM.BPON ---
Interventional Pulmonary Immediate Brief Operative Note: Date of Procedure:?July 21, 2025 Preoperative Diagnosis:?Left lower lobe lung mass. Right upper lobe nodule Postoperative Diagnosis:?[Same as pre-op] Procedures Performed: Robotic bronchoscopy with mediastinal staging EBUS _ Surgeon / Research Professor Of Biostatistics:?Ricardo Dnulap MD Anesthesia: ?General anesthesia Findings: Normal bronchoscopic findings Estimated Blood Loss (EBL):?[Minimal] Specimens: ?BAL fluid left lower lobe and right upper lobe ?TBNA from station(s) LLL mass, RUL nodule, 11R, 4R, station 7, 4L and 11L ?Forceps/cryo biopsy from LLL mass and RUL nodule. Station 11L Brushings from LLL mass and RUL nodule Complications:?None Disposition:?Transferred to PACU in stable condition. Ricardo Dunlap MD, FACP Interventional Pulmonogist
--- NOTE | 2025-07-21 10:57 | P.OP_ITS ---
Operative Report Date of procedure: July 21, 2025 Pre-op diagnosis: Left lower lobe mass Right upper lobe nodule Procedure done: Robotic bronchoscopy with EBUS staging Surgeon: Ricardo Dunlap MD Estimated blood loss: Less than 10 cc Complications: None Findings: Procedure: Robotic bronchoscopy with complete mediastinal staging Attending: Ricardo Dunlap MD, FACP, FASN Indication: Left lower lobe lung mass and right upper lobe lung Medications: Lidocaine 2% (10 cc) applied to the tracheobronchial tree Anesthesia: General anesthesia per anesthesia team Procedure: Pre-Anesthesia Assessment [place] Protocol: Pre-procedure Verification: Prior to the procedure, the patient's identity was confirmed using full name, date of , and medical record number. Identity verification included a review of all relevant medical records, history, physical examination, medications, allergies, and previous anesthesia tolerance. Risks, benefits, sedation options, and associated risks were reviewed with the patient, and informed consent was obtained after addressing all questions. Time-Out: Immediately before the procedure, a time-out was conducted to confirm patient identification, procedure details, consent, image labeling, and the need for prophylactic antibiotics. This was verified by the physician, nurse, anesthesiologist, and hotel front desk clerk. Outcome: The procedure was completed without difficulty, and the patient tolerated it well. Findings: A thorough airway exam was performed after passage of the bronchoscope. The trachea was anatomically normal. The right sided airway was anatomically normal without endobronchial lesions. No secretions. The left sided airway was anatomically normal without endobronchial lesions. No secretions. The prior bronchoscope was removed from the airway. The [employer] Robotic Bronchoscopy platform was moved into place. The robotic bronchoscope was inserted into the endotracheal tube with care. The position of the bronchoscope was registered to a pre-existing CT scan using shape-sensing virtual bronchoscopy technology. Initially we navigated to the left lower lobe mass using a pre-planned route using virtual bronchoscopy Prior to sampling, confirmation of lesion location was done using: - Radial ultrasound probe with a concentric view. - Fluroscopy with a tool overlying the lesion on at least one visual plane. - Virtual target located directly within the path of intended biopsy direction on shape sensing robotic After confirming our location, we proceeded to sampling. - Transbronchial needle aspiraiton (TBNA) was performed of the lesion using the ION TBNA 21-gauge needle. A total of 6 passes were formed. - Transbronchial biopsies of the lesion were performed using the captura 1.8 mm forceps and 1.1 cryoprobe). A total of 12 samples were obtained. - A bronchoalveolar lavage was performed of the lobe containing the target lesion with 120 mL of saline instilled and 45 mL of effluent returned. Then we navigated to the right upper lobe nodule using a pre-planned route using virtual bronchoscopy Prior to sampling, confirmation of lesion location was done using: - Radial ultrasound probe with non reproducible view. - Fluroscopy with a tool overlying the lesion on at least one visual plane. - Virtual target located directly within the path of intended biopsy direction on shape sensing robotic After confirming our location using the CBCT, we proceeded to sampling. - Transbronchial needle aspiraiton (TBNA) was performed of the lesion using the ION TBNA 21-gauge needle. A total of 6 passes were formed. - Transbronchial biopsies of the lesion were performed using the captura 1.8 mm forceps and 1.1 cryoprobe). A total of 12 samples were obtained. - A bronchoalveolar lavage was performed of the lobe containing the target lesion with 30 mL of saline instilled and 20 mL of effluent returned. Then robotic scope was removed. T scope was inserted. The prior bronchoscope was removed from the airway and the EBUS scope was inserted. A complete curvilinear EBUS procedure was performed of the following lymph nodes: Level 11R station was identified with the EBUS scope at the RBI/right hilum and 5 passes were made using 22-gauge Olympus TBNA needles. Level 4R station was identified with the EBUS scope at the lateral RMSB and 4 passes were made using a 21G/22G Olympus TBNA needles. Level 7 station was identified with the EBUS scope at the medial LMSB/RMSB and 5 passes were made using a 22G Olympus TBNA needles. Level 4L station was identified with the EBUS scope at the lateral LMSB 3 passes were made using a 22G Olympus TBNA needles. Level 11L station was identified with the EBUS scope at the LLL/L hilum and 5 passes were made using a 22G Olympus TBNA needles. (4 for cyto and 1 for pool flow) Using the same TBNA needle track a cryoprobe 1.1 was passed for cryo TBBX biopsy from 11L lymph node after freezing for 5-10 seconds and we are able to obtain 4 samples. [place] Bleeding Scale Grade 1: Suctioning <1 minute. Bleeding of no clinical consequence to patient or provider. Following completion of all diagnostic and therapeutic procedures, hemostasis was verified. The scope was removed and procedure concluded. In summary, the following procedures were performed: 43968 BAL, (Bronchoalveolar Lavage), 18768 Brushings 14626 TBBX, (Transbronchial biopsies, first lobe), 01453 additional TBBX 06131 Additional TBBX 04321 pTBNA, (peripheral transbronchial needle aspiration), 86702 additional pTBNA 78618 cEBUS 3 or more lesions, (Central curvelinear EBUS 3 or more lesions), 67592 pEBUS (peripheral/radial EBUS), 27404 Dilshad, (Navigation bronchoscopy, LungPoint, SpotRight), 11658: CT Imaging guidance Ricardo Dunlap MD, FACP, FASN Interventional Pulmonary Procedure: End of the procedure.
--- NOTE | 2025-07-21 13:40 | ANE.PACU2 ---
Inpatient post-anesthesia follow up: Airway intact: Yes Vital signs: Temperature 97.4 F Pulse Rate 86 Respiratory Rate 18 Blood Pressure 136/68 Pulse Oximetry 92 Oxygen Delivery Me thod Room Air Oxygen Flow Rate 2 Fraction of Inspir ed Oxygen Hydration adequate: Yes Nausea and vomiting: No Pain level: 1 Mental status: Baseline
[2025-07-22 11:52] LABS: Cyto Order Verification Order Verified
[2025-07-23 18:10] LABS: Histoplasma Antigen (Quant) None Detected; Histoplasma Antigen Interpreta NEGATIVE; Histoplasma Antigen Specimen LAVAGE,BRONCHIAL
[2025-07-24 13:44] LABS: P. Jirovecii DNA QL PCR Not Detected (Not Detected); P. Jirovecii DNA QL PCR Source Results Below
[2025-07-25 18:20] LABS: Aspergillus AG,EIA DETECTED; Aspergillus AG,EIA, Index 1.05
== END 2025-07-21 13:40 | disposition home or self-care (01) ==
PROVIDERS: PCP Nurse Practitioner; Visit Provider Internal Medicine
PROC: 0BJ08ZZ Inspection of Tracheobronchial Tree, Via Natural or Artificial Opening Endoscopic (ICD-10-PCS; CPT 31622; principal; 2025-07-21 08:00)
PROC: 0BJ08ZZ Inspection of Tracheobronchial Tree, Via Natural or Artificial Opening Endoscopic (ICD-10-PCS; CPT 31622; 2025-07-21 08:00)
PROC: BB4BZZZ Ultrasonography of Pleura (ICD-10-PCS; 2025-07-21 08:00)
DX: R91.8 Other nonspecific abnormal finding of lung field (principal); D76.3 Other histiocytosis syndromes; J60 Coalworker's pneumoconiosis; E11.9 Type 2 diabetes mellitus without complications; M06.9 Rheumatoid arthritis, unspecified; I10 Essential (primary) hypertension; J44.9 Chronic obstructive pulmonary disease, unspecified; Z87.891 Personal history of nicotine dependence
CPT/HCPCS: 31623; 31628; 31629; 31632; 31633; 31653; 31654; 71045; 76000; 87015; 87070; 87075; 87081; 87102; 87116; 87176; 87205; 87206; 87305; 87385; 87798; 87801; 88112; 88173; 88305; 88312; 88313; 88342; A9270; J2405; J2704; J3010; J3490; J7030; J9999

== ENCOUNTER 2025-07-21 06:45 | Outpatient (CLI) | payer MEDICARE, SELFPAY ==
--- NOTE | 2025-07-21 08:00 | CT_ITS ---
WS: [id number] CT chest ION (PULM ONLY) [id number] HISTORY: Robotic Bronch TECHNIQUE: Axial imaging performed through the thorax. Coronal and sagittal reformats are submitted. All CT scans at [facility] use at least one of these dose optimization techniques: automated exposure control; mA and/or kV adjustment per patient size (includes targeted exams where dose is matched to clinical indication); or iterative reconstruction. CONTRAST: None DLP: 234.76 mGy COMPARISON: 06/26/2025 Imaging is performed prior to navigational bronchoscopy. These images are obtained to supplement the prior CT of 06/26/2025. Biapical pleural thickening in the upper lung fierro reidentified. Spiculated mass with central cavitation RIGHT upper lobe 1.3 x 1.3 cm is unchanged. Positive on PET/CT. Increasing consolidation in the superior medial LEFT lower lobe with component of atelectasis now present. No change in the additional opacifications in the LEFT upper and superior segment LEFT lower lobe. Increasing consolidation is now present at the LEFT lung base since 06/26/2025 which may be atelectasis or pneumonia. No change in the spiculated nodule superior segment LEFT lower lobe. No change in the mild thickening of the adrenal glands. CT/CT chest ION (PULM ONLY) [id number] IMPRESSION: 1. Reidentified spiculated mass RIGHT upper lobe with central cavitation, 1.3 x 1.3 cm is unchanged. 2. Increasing consolidation superior medial LEFT lower lobe with a component o f atelectasis. 3. Increasing consolidation at the LEFT lung base. Atelectasis and or pneumoni a present. 4. No change 4 mm spiculated nodule superior segment LEFT lower lobe.
== END 2025-07-21 06:46 | disposition home or self-care (01) ==
LOC: RAD 06:47
PROVIDERS: PCP Nurse Practitioner; Visit Provider Internal Medicine
DX: R91.1 Solitary pulmonary nodule (principal); J92.9 Pleural plaque without asbestos; R91.8 Other nonspecific abnormal finding of lung field
CPT/HCPCS: 71250

== ENCOUNTER → 2025-07-30 10:54 | Outpatient (BNVA) | payer MEDICARE, SELFPAY | PROVIDERS: PCP Nurse Practitioner; Visit Provider Internal Medicine | DX: R91.1 Solitary pulmonary nodule (principal); R91.8 Other nonspecific abnormal finding of lung field; J43.9 Emphysema, unspecified; J47.9 Bronchiectasis, uncomplicated; Z99.81 Dependence on supplemental oxygen; Z87.01 Personal history of pneumonia (recurrent); Z87.440 Personal history of urinary (tract) infections; Z87.891 Personal history of nicotine dependence; J84.10 Pulmonary fibrosis, unspecified; J44.9 Chronic obstructive pulmonary disease, unspecified; J84.9 Interstitial pulmonary disease, unspecified | CPT/HCPCS: 99215; Q3014 ==

== ENCOUNTER 2025-07-30 14:16 | Oncology outpatient (recurring) (ONCR) | payer MEDICARE, SELFPAY ==
--- NOTE | 2025-07-30 15:05 | N.ONRAD NP_ITS ---
Radiation Oncology New Patient Visit Patient: Tammy Johns MR#: [id number] : 1950 Age: 75 Sex: Female Dictated by: Dr. Dayanara Foster Date of Service: 07/30/2025 Referring Physician(s) : Dr. Douglas Dunlap Diagnosis: Abnormal PET scan with negative biopsies Radiotherapy to date: Summary > No prior radiation therapy. Chief Complaint / History of Present Illness: Ms. Johns is a 75-year-old lady who ties all of her health issues to having COVID. She apparently did not have any problems or changes until she she had COVID in 2019. Since that time she has had multiple health issues. Since [address]22 she has had serial CT scans which have shown spots that have come and gone in other spots that have actually gotten smaller in some that have gotten larger. She did undergo biopsies recently and all of the biopsies were negative. They showed scar tissue and resolving pneumonia and inflammation. She just met with her new rn clinical documentation specialist who has recommended to her a repeat biopsy. She is here today to get established basically for long-term follow-up. Current Medications: albuterol sulfate 90 mcg/actuation 2 puffs inhalation Q4H PRN budesonide-formoterol 80-4.5 mcg/actuation (Breyna) 2 puffs inhalation BID ipratropium-albuterol 0.5 mg-3 mg(2.5 mg base)/3 mL 3 mL inhalation Q6H PRN Allergies: aspirin Allergy (Verified 07/30/25 11:00) ALGY-Rash budesonide (From Breztri Aerosphere) Allergy (Verified 07/30/25 11:00) Unknown Corticosteroids (Glucocorticoids) Allergy (Verified 07/30/25 11:00) Unknown formoterol (From Breztri Aerosphere) Allergy (Verified 07/30/25 11:00) Unknown glycopyrrolate (From Breztri Aerosphere) Allergy (Verified 07/30/25 11:00) Unknown Penicillins Allergy (Verified 07/30/25 11:00) ALGY-Anaphylaxis umeclidinium (From Anoro Ellipta) Allergy (Verified 07/30/25 11:00) ADR-Cough vilanterol (From Anoro Ellipta) Allergy (Verified 07/30/25 11:00) ADR-Cough Medical History: No history of collagen vascular disease. No previous radiation therapy. Type 2 diabetes mellitus Rheumatoid arthritis Osteoarthritis Hypertension COVID-19 Diverticulitis Lower GI bleed Ischemic colitis Ulcerative colitis COPD (chronic obstructive pulmonary disease) Surgical History: S/P tonsillectomy History of partial hysterectomy History of colonoscopy Family History: Other CAD (coronary artery disease) Denies family history of Diabetes Cancer Social History: Smoking and tobacco/nicotine status: former use of tobacco/nicotine (30 years, pack a day) Quit status (tobacco/nicotine): has quit using Year quit tobacco: September 2022 Former quit date comment: 1ppd x 46 years Alcohol intake: never Substance/Drug Use: never Caregiver/support person: No Lives independently: Yes Household members: none Housing: House Pets and animals: Yes Current Complaints / Review of Systems: . Vital Signs: Performed on 07/30/2025 2:24 PM BMI - 21.134 kg/m2, Height - 65 in, Weight - 127 lbs, Temperature - 98.1 f, Pulse - 94 /min, Respiration - 21 /min (high), O2 Sat - 95 % (low), Pain - 0, Fatigue - 0 and BP - 130/ 78 mm(hg). Physical Exam: General: Patient is sitting comfortably in her chair. She is companied by her friend RAJIVENT: Normocephalic atraumatic. Pupils are equal, sclera clear, extraocular muscles intact Pulmonary: Respiratory rate is regular nonlabored Cardiovascular: Regular rate and rhythm Abdomen: Patient is quite thin with minimal adipose tissue Extremities: Without obvious edema or lymphedema in the upper or lower extremities Skin: Warm and dry Neurological: Alert and orient x 3. Gait and speech within normal limits Psych: Affect appropriate for current situation Performance Status: 80 Pathology: Pulmonary Lab: Imaging: See HPI Impression: Abnormal PET scan with negative biopsies Plan: I reviewed with her that all of her biopsies were negative. We talked about how her rn clinical documentation specialist has recommended repeat biopsy. I reviewed with her that typically if she should have any abnormalities that required treatment we would use the radiation. If her biopsy should return as positive we would use SBRT to treat the area. She does need to have serial CT scans done every 6 months. We also talked about how if the next biopsy was also negative we could just set her up with a 6-month CT and follow-up here in our department to keep tabs on the changes and also to facilitate her care. The pulmonary department has had difficulty filling the position over the last 2 to 3 years. She verbalized understanding of this. Will follow along and monitor her biopsies. And see her back subsequently. Signed by: 07/30/2025 3:02:22 PM <<Signature on File>> Time spent with patient:45 CPT Code: CPT Code:
== END 2025-08-21 23:59 | disposition home or self-care (01) ==
PROVIDERS: PCP Nurse Practitioner; Visit Provider Radiology Radiation Oncology
DX: J84.10 Pulmonary fibrosis, unspecified (principal); J44.9 Chronic obstructive pulmonary disease, unspecified; J84.9 Interstitial pulmonary disease, unspecified; J47.9 Bronchiectasis, uncomplicated; Z87.891 Personal history of nicotine dependence; Z86.16 Personal history of COVID-19; R91.1 Solitary pulmonary nodule; R91.8 Other nonspecific abnormal finding of lung field; J43.9 Emphysema, unspecified; Z99.81 Dependence on supplemental oxygen; Z87.01 Personal history of pneumonia (recurrent); Z87.440 Personal history of urinary (tract) infections
CPT/HCPCS: 36415; 82103; 82164; 82784; 85651; 86021; 86036; 86038; 86431; 99204; 99215; Q3014

== ENCOUNTER → 2025-09-08 13:26 | Outpatient (BNVA) | payer MEDICARE, SELFPAY | PROVIDERS: PCP Nurse Practitioner; Visit Provider Internal Medicine | DX: J43.9 Emphysema, unspecified (principal); J47.9 Bronchiectasis, uncomplicated; R91.1 Solitary pulmonary nodule; R91.8 Other nonspecific abnormal finding of lung field; Z99.81 Dependence on supplemental oxygen; Z87.01 Personal history of pneumonia (recurrent); Z87.891 Personal history of nicotine dependence; J98.4 Other disorders of lung | CPT/HCPCS: 99214; Q3014 ==